=== PATIENT | female | born 1955 | race Caucasian/White ===

== ENCOUNTER 2023-07-03 14:44 | Observation (INO) | payer MEDICARE, MEDICAID, SELFPAY ==
[2023-07-03] VITALS (57 sets, daily range): BP systolic 89–205; BP diastolic 61–105; PULSE 88–140; RESP 16–34; TEMP 36.4–36.7; O2SAT 93–99; BMI 20.7; BMI 21.9
--- NOTE | 2023-07-03 14:47 | ECG_ITS ---
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
--- NOTE | 2023-07-03 14:47 | XR_ITS ---
The [address] [address] Patient Name: CHEYENNE YEN MRN: [id number] date: 1955 Sex: F Assigned Patient Location: ER Current Patient Location: ED.MAIN Accession/Order Number: [id number] Exam Date: 07/03/2023 15:18 Report Date: 07/03/2023 15:36 At the request of: SALEEM PEDRO Procedure: XR chest 1V EXAM: XR chest 1V HISTORY: sob COMPARISON: 07/03/2023 TECHNIQUE: Portable FINDINGS: LUNGS: Mild right basilar infiltrate. The left lung is clear VASCULATURE: No increased pulmonary vasculature. PLEURA: No pneumothorax, effusion, or pleural thickening. CARDIAC: No cardiomegaly or cardiac silhouette abnormality. MEDIASTINUM: No visible mass or adenopathy. BONES: No fracture or visible bone lesion. OTHER: Negative. XR/XR chest 1V IMPRESSION: Right basilar infiltrate Electronically authenticated by: JESUS CAGE Date: 07/03/2023 15:36
--- NOTE | 2023-07-03 15:14 | US_ITS ---
[address] [address] Patient Name: CHEYENNE YEN MRN: [id number] date: 1955 Sex: F Assigned Patient Location: ED.MAIN Current Patient Location: ER Accession/Order Number: [id number] Exam Date: 07/03/2023 15:30 Report Date: 07/03/2023 17:05 At the request of: SALEEM PEDRO Procedure: US abdominal aortic aneurysm EXAM: US abdominal aortic aneurysm HISTORY: epigastric fullness and tachycardia and dizziness COMPARISON: None. TECHNIQUE: Abdominal ultrasound is performed. Multiple grayscale and color Doppler images are submitted for review. FINDINGS: This is a difficult examination due to poor visualization of the aorta and iliac arteries due to obstruction by bowel gas. The abdominal aorta as well as the bilateral iliac arteries demonstrate severe atherosclerotic plaque. The proximal, mid and distal dominant aorta measure 2 x 1.9 cm, 1.8 x 1.8 cm and 1.6 x 1.7 cm in AP and transverse diameter, respectively. The right and left iliac arteries measure 1 x 1 cm and 0.9 x 1.1 cm in AP and transverse diameter, respectively. Doppler measurements were performed with velocities included in technologist report. US/US abdominal aortic aneurysm IMPRESSION: No evidence for abdominal aortic or iliac arterial aneurysm. Severe atherosclerotic calcification is seen. Electronically authenticated by: RODOLFO KEMP Date: 07/03/2023 17:05
--- NOTE | 2023-07-03 15:14 | PC.NURSE ---
pt states 30 mins ago was pushing a large heavy package into house and had an onset of SOB and dizziness. Pt does have h/o COPD.
[2023-07-03 15:19] LABS: Basophils Absolute Auto 0.1 10^3/uL (0.0-0.1); Basophils Percent Auto 0.7 % (0.2-2.0); Eosinophils Absolute Auto 0.4 10^3/uL (0.0-0.7); Eosinophils Percent Auto 3.4 % (0.9-7.0); Hematocrit 43.4 % (36.0-48.0); Hemoglobin 13.9 g/dL (12.0-16.0); Immature Granulocytes Abs Auto 0.04 10^3/uL (0.00-0.03); Immature Granulocytes Pct Auto 0.4 % (0.0-0.5); Lymphocytes Absolute Auto 2.7 10^3/uL (1.2-3.8); Lymphocytes Percent Auto 26.1 % (20.5-60.0); Mean Corpuscular Hemoglobin 30.2 pg (26.7-34.0); Mean Corpuscular Volume 94.3 fL (81.0-99.0); Mean Platelet Volume 10.9 fL (9.5-13.5); Neutrophils Absolute Auto 6.2 10^3/uL (1.4-6.5); Neutrophils Percent Auto 59.4 % (43.0-75.0); Platelet Count 301 10^3/uL (150-450); Red Cell Distribution Width 12.5 % (11.0-15.0); White Blood Count 10.4 10^3/uL (4.0-11.0)
[2023-07-03 15:32] LABS: Prothrombin Time 9.8 sec (9.0-11.6)
[2023-07-03] MEDS: 0.9 % SODIUM CHLORIDE 1,000 ML 1000 ML IV (15:32)
[2023-07-03 15:36] LABS: Alanine Aminotransferase 21 U/L (14-59); Albumin Globulin Ratio 0.9; Albumin Level 3.6 g/dL (3.4-5.0); Alkaline Phosphatase 60 U/L (46-116); Anion Gap 13.7; Aspartate Amino Transferase 14 U/L (15-37); BUN Creatinine Ratio 20.7; Bilirubin Total 0.2 mg/dL (0.2-1.0); Calcium 9.5 mg/dL (8.5-10.1); Carbon Dioxide 26.9 mmol/L (21.0-32.0); Chloride 101 mmol/L (98-107); Estimated GFR (African America >60 (>=60); Estimated GFR (Non-African Ame >60 (>=60); Globulin 4.2 g/dL; Glucose 113 mg/dL (74-106); Potassium 3.6 mmol/L (3.5-5.1); Sodium 138 mmol/L (136-145); Total Protein 7.8 g/dL (6.4-8.2)
[2023-07-03 15:39] LABS: Magnesium 1.7 mg/dL (1.8-2.4); Troponin I High Sensitivity 6.9 pg/mL (4.0-51.3)
[2023-07-03 15:40] LABS: INR <0.93
--- NOTE | 2023-07-03 15:45 | ED.SOB1 ---
HPI - SOB/Dyspnea General Chief Complaint: Shortness of Breath/Dyspnea Stated Complaint: SHORTNESS OF BREATH/ DIZZINESS Time Seen by Provider: 07/03/23 14:47 Source: patient Mode of arrival: Wheelchair Limitations: no limitations History of Present Illness HPI Narrative: Patient have history of COPD as well as hypertension and history of coronary artery disease s/p 2 stent presenting to the ER after she was pushing some heavy objects and all of a sudden she felt some fullness and pressure in her epigastric area with shortness of breath as well as dizziness The patient is complaining of shortness of breath no chest pain no nausea no vomiting no other complaints she mentioned that she was feeling okay during the day she never had any complain more than his baseline COPD No fever no chills and right now the patient's complaint is of dizziness in addition to the fullness in the epigastric area Related Data Allergies Allergy/AdvReac Type Severity Reaction Status Date / Time ciprofloxacin [From Cipro] Allergy Verified 07/03/23 14:51 Review of Systems ROS Status of ROS 10 or more systems reviewed and unremarkable except as noted in history and below PFSH PFS Social History Smoking status: Former smoker Exam Narrative Exam Narrative: Nurses notes and vital signs reviewed and patient is not hypoxic. General: Well-appearing and in no apparent distress. Skin: Warm, dry, no pallor noted. No rash. Head: Normocephalic, atraumatic. Neck: Supple, non-tender. Eye: Pupils are equal, round and EOMI. No scleral icterus. Ears, Nose, Mouth, and Throat: TM are clear, no nasal mucosal hypertrophy. Oral mucosa is moist, no posterior oropharynx erythema, uvula is mid-line Cardiovascular: Regular Rate and Rhythm without murmur, gallop or rub. Respiratory: No accessory muscle use or respiratory distress. Lungs are clear to auscultation, no wheezing, rales or rhonchi Chest Wall: no tenderness Back: No midline thoracic or lumbar vertebral tenderness. No CVA tenderness Musculoskeletal: normal ROM, no calf or popliteal tenderness, no lower extremity edema/swelling GI: Abdomen is soft, non-distended. Normal bowel sounds. No masses appreciated. No tenderness to palpation. No rebound, guarding, or rigidity noted. Neurological: A&O x4. No cranial nerve dysfunction observed. No truncal ataxia. Moves all extremities. Sensation intact. Psychiatric: Cooperative and interactive. Normal mood and affect. Constitutional Vital Signs, click to edit/add: Last Vital Signs Temp 97.6 F 07/03/23 14:47 Pulse 93 H 07/03/23 16:30 Resp 21 07/03/23 16:30 BP 162/78 H 07/03/23 16:40 Pulse Ox 99 07/03/23 16:30 O2 Del Method Room Air 07/03/23 14:47 Course Vital Signs Vital signs: Vital Signs Temperature 97.6 F 07/03/23 14:47 Pulse Rate 140 H 07/03/23 14:47 Respiratory Rate 20 07/03/23 14:47 Blood Pressure 166/94 H 07/03/23 14:47 Pulse Oximetry 96 07/03/23 14:47 Oxygen Delivery Method Room Air 07/03/23 14:47 Temperature 97.6 F 07/03/23 14:47 Pulse Rate 93 H 07/03/23 16:30 Respiratory Rate 21 07/03/23 16:30 Blood Pressure 162/78 H 07/03/23 16:40 Pulse Oximetry 99 07/03/23 16:30 Oxygen Delivery Method Room Air 07/03/23 14:47 MDM - SOB/Dyspnea MDM Narrative Medical decision making narrative: The patient EKG upon presentation showing sinus tachycardia with a heart rate of 123 there was some T wave inversion in the lead aVL but this was also noted in her previous EKGs With the patient atypical presentation a concern for aneurysm or dissection was initiated and the patient was supposed to go for CAT scan angio of the abdomen and chest but initially she refused although I offered her some sedation The patient then had an ultrasound of the abdomen that showed severe atherosclerotic disease is the patient continues to be tachycardic and her blood pressure noted to be elevated and she was provided with a hydralazine after which the blood pressure was 170 systolic still and she also was provided with labetalol 1 dose The patient agreed to have the CAT scan after I explained to her the importance of having 1 to make sure that we do a diagnostic study The patient troponin result increased from 6-12 which is a significant increase but still not positive I spoke with the technical staff assistant on-call Dr. Phillips and right now the plan if CAT scan is positive the patient and will be transferred to be treated but if it is negative the patient can be admitted to our facility to trend the troponin and monitor pt care was trasnferred to Dr Barry awaiting the result of the CT angio chest and abd Lab Data Labs: Lab Results 07/03/23 07/03/23 Range/Units 15:00 17:30 WBC 10.4 (4.0-11.0) 10^3/uL RBC 4.60 (4.20-5.40) 10^6/uL Hgb 13.9 (12.0-16.0) g/dL Hct 43.4 (36.0-48.0) % MCV 94.3 (81.0-99.0) fL MCH 30.2 (26.7-34.0) pg MCHC 32.0 (29.9-35.2) g/dL RDW 12.5 (11.0-15.0) % Plt Count 301 (150-450) 10^3/uL MPV 10.9 (9.5-13.5) fL Neut % (Auto) 59.4 (43.0-75.0) % Lymph % (Auto) 26.1 (20.5-60.0) % [place] % (Auto) 10.0 (1.7-12.0) % Eos % (Auto) 3.4 (0.9-7.0) % Baso % (Auto) 0.7 (0.2-2.0) % Neut # (Auto) 6.2 (1.4-6.5) 10^3/uL Lymph # (Auto) 2.7 (1.2-3.8) 10^3/uL [place] # (Auto) 1.0 H (0.3-0.8) 10^3/uL Eos # (Auto) 0.4 (0.0-0.7) 10^3/uL Baso # (Auto) 0.1 (0.0-0.1) 10^3/uL Abs Immat Gran (auto) 0.04 H (0.00-0.03) 10^3/uL Imm/Tot Granulo (auto) 0.4 (0.0-0.5) % PT 9.8 (9.0-11.6) sec INR <0.93 Sodium 138 (136-145) mmol/L Potassium 3.6 (3.5-5.1) mmol/L Chloride 101 (98-107) mmol/L Carbon Dioxide 26.9 (21.0-32.0) mmol/L Anion Gap 13.7 BUN 17.0 (7.0-18.0) mg/dL Creatinine 0.82 (0.55-1.02) mg/dL Est GFR ( Amer) >60 (>=60) Est GFR (Non-Af Amer) >60 (>=60) BUN/Creatinine Ratio 20.7 Glucose 113 H (74-106) mg/dL Lactate 2.2 H* 1.7 (0.4-2.0) mmol/L Calcium 9.5 (8.5-10.1) mg/dL Magnesium 1.7 L (1.8-2.4) mg/dL Total Bilirubin 0.2 (0.2-1.0) mg/dL AST 14 L (15-37) U/L ALT 21 (14-59) U/L Alkaline Phosphatase 60 (46-116) U/L Troponin I High Sens 6.9 13.8 (4.0-51.3) pg/mL NT-Pro-B Natriuret Pep 34.0 (<=900.0) pg/mL Total Protein 7.8 (6.4-8.2) g/dL Albumin 3.6 (3.4-5.0) g/dL Globulin 4.2 g/dL Albumin/Globulin Ratio 0.9 Discharge Plan Discharge Patient Disposition: Still a Patient
[2023-07-03 15:48] LABS: Lactate/Lactic Acid 2.2 mmol/L (0.4-2.0)
[2023-07-03] MEDS: HYDRALAZINE HCL 20 MG/ML VIAL 10 MG IVP (17:29)
[2023-07-03] MEDS: LORAZEPAM 1 MG TABLET PO (17:45)
[2023-07-03 17:57] LABS: Troponin I High Sensitivity 13.8 pg/mL (4.0-51.3)
[2023-07-03 17:58] LABS: Lactate/Lactic Acid 1.7 mmol/L (0.4-2.0)
--- NOTE | 2023-07-03 18:33 | CT_ITS ---
The [address] [address] Patient Name: CHEYENNE YEN MRN: [id number] date: 1955 Sex: F Assigned Patient Location: ER Current Patient Location: ED.MAIN Accession/Order Number: [id number] Exam Date: 07/03/2023 18:13 Report Date: 07/03/2023 19:49 At the request of: SALEEM PEDRO Procedure: CT angio abdomen pelvis EXAM: CT angio chest, CT angio abdomen pelvis HISTORY: epigastric fullness and sob COMPARISON: CT angiogram chest dated 11/10/2021. TECHNIQUE: Following rapid IV contrast administration, multiple axial images of the chest, abdomen and pelvis were obtained. Coronal and sagittal reformatted sequences are submitted for review. FINDINGS: VASCULAR STRUCTURES: The thoracic aorta demonstrates normal course, caliber and contrast enhancement. There is no evidence for thoracic aortic aneurysm or dissection. Atherosclerotic calcification of the abdominal aorta is seen. There is no evidence for abdominal aortic aneurysm or dissection. Normal contrast enhancement and caliber of the abdominal aorta and bilateral iliac arteries is seen. The celiac artery, as well as the superior and inferior mesenteric arteries appear patent with normal caliber and contrast enhancement. Mild atherosclerotic calcification is seen at the origin of the bilateral single renal arteries, without significant stenosis. CHEST: The heart size is normal. There is no evidence for pericardial effusion. Normal contrast opacification of the pulmonary arteries is seen without evidence for abrupt cut off or significant filling defect to suggest CT evidence for pulmonary embolism. There is no evidence for pleural effusion or pneumothorax. Mild centrilobular emphysema is seen. Stable appearing 2 mm nonspecific noncalcified nodule is seen in the right upper lobe. Small area of irregular parenchymal densities is seen in the superior segment of the left lower lobe, which may represent mild focal scarring, which appear stable since prior examination. Stable appearing reticulonodular densities are seen in the subpleural right lung base. However, there is interval development of small airspace changes in the bilateral lung bases, which may represent atelectasis versus small infiltrate. No significant enlarged hilar, mediastinal or axillary adenopathy seen. The visualized chest wall appears unremarkable. ABDOMEN/PELVIS: Patient is post cholecystectomy. Surgical clips are seen in the gallbladder fossa. The liver, spleen, pancreas and bilateral adrenal glands appear unremarkable. Bilateral kidneys demonstrate normal size, morphology and contrast enhancement. There is no evidence for hydronephrosis bilaterally. The urinary bladder appears unremarkable. A 7 cm round cystic structure is seen in the posterior pelvis. Right ovarian cystic structure/right ovarian etiology is considered. This finding can be better evaluated with pelvic ultrasound or pelvic MRI. Nonobstructive bowel pattern is seen. The appendix is not identified. No abnormal pericecal inflammatory changes are seen. Featureless appearance of the descending, sigmoid and ascending colon is seen, which may represent acute versus chronic inflammatory colitis. No significant free fluid or abnormal fluid collection is seen in the abdomen and pelvis. The abdominal wall and visualized soft tissues appear unremarkable. No acute or destructive osseous lesion is seen. CT/CT angio abdomen pelvis IMPRESSION: Atherosclerotic vascular calcification is seen without evidence for aneurysmal dilatation or dissection. Featureless appearance of the descending, sigmoid and ascending colon is seen, which may represent acute versus chronic inflammatory colitis. A 7 cm round cystic structure is seen in the posterior pelvis. Right ovarian cystic structure/right ovarian etiology is considered. This finding can be better evaluated with pelvic ultrasound or pelvic MRI. No CT evidence for pulmonary embolism. Mild centrilobular emphysema is seen. Stable appearing 2 mm nonspecific noncalcified nodule is seen in the right upper lobe. Small area of irregular parenchymal densities is seen in the superior segment of the left lower lobe, which may represent mild focal scarring, which appear stable since prior examination. Stable appearing reticulonodular densities are seen in the subpleural right lung base. However, there is interval development of small airspace changes in the bilateral lung bases, which may represent atelectasis versus small infiltrate. Electronically authenticated by: RODOLFO KEMP Date: 07/03/2023 19:49
--- NOTE | 2023-07-03 18:33 | CT_ITS ---
The [address] [address] Patient Name: CHEYENNE YEN MRN: [id number] date: 1955 Sex: F Assigned Patient Location: ED.MAIN Current Patient Location: ED.MAIN Accession/Order Number: [id number] Exam Date: 07/03/2023 18:13 Report Date: 07/03/2023 19:49 At the request of: SALEEM PEDRO Procedure: CT angio chest EXAM: CT angio chest, CT angio abdomen pelvis HISTORY: epigastric fullness and sob COMPARISON: CT angiogram chest dated 11/10/2021. TECHNIQUE: Following rapid IV contrast administration, multiple axial images of the chest, abdomen and pelvis were obtained. Coronal and sagittal reformatted sequences are submitted for review. FINDINGS: VASCULAR STRUCTURES: The thoracic aorta demonstrates normal course, caliber and contrast enhancement. There is no evidence for thoracic aortic aneurysm or dissection. Atherosclerotic calcification of the abdominal aorta is seen. There is no evidence for abdominal aortic aneurysm or dissection. Normal contrast enhancement and caliber of the abdominal aorta and bilateral iliac arteries is seen. The celiac artery, as well as the superior and inferior mesenteric arteries appear patent with normal caliber and contrast enhancement. Mild atherosclerotic calcification is seen at the origin of the bilateral single renal arteries, without significant stenosis. CHEST: The heart size is normal. There is no evidence for pericardial effusion. Normal contrast opacification of the pulmonary arteries is seen without evidence for abrupt cut off or significant filling defect to suggest CT evidence for pulmonary embolism. There is no evidence for pleural effusion or pneumothorax. Mild centrilobular emphysema is seen. Stable appearing 2 mm nonspecific noncalcified nodule is seen in the right upper lobe. Small area of irregular parenchymal densities is seen in the superior segment of the left lower lobe, which may represent mild focal scarring, which appear stable since prior examination. Stable appearing reticulonodular densities are seen in the subpleural right lung base. However, there is interval development of small airspace changes in the bilateral lung bases, which may represent atelectasis versus small infiltrate. No significant enlarged hilar, mediastinal or axillary adenopathy seen. The visualized chest wall appears unremarkable. ABDOMEN/PELVIS: Patient is post cholecystectomy. Surgical clips are seen in the gallbladder fossa. The liver, spleen, pancreas and bilateral adrenal glands appear unremarkable. Bilateral kidneys demonstrate normal size, morphology and contrast enhancement. There is no evidence for hydronephrosis bilaterally. The urinary bladder appears unremarkable. A 7 cm round cystic structure is seen in the posterior pelvis. Right ovarian cystic structure/right ovarian etiology is considered. This finding can be better evaluated with pelvic ultrasound or pelvic MRI. Nonobstructive bowel pattern is seen. The appendix is not identified. No abnormal pericecal inflammatory changes are seen. Featureless appearance of the descending, sigmoid and ascending colon is seen, which may represent acute versus chronic inflammatory colitis. No significant free fluid or abnormal fluid collection is seen in the abdomen and pelvis. The abdominal wall and visualized soft tissues appear unremarkable. No acute or destructive osseous lesion is seen. CT/CT angio chest IMPRESSION: Atherosclerotic vascular calcification is seen without evidence for aneurysmal dilatation or dissection. Featureless appearance of the descending, sigmoid and ascending colon is seen, which may represent acute versus chronic inflammatory colitis. A 7 cm round cystic structure is seen in the posterior pelvis. Right ovarian cystic structure/right ovarian etiology is considered. This finding can be better evaluated with pelvic ultrasound or pelvic MRI. No CT evidence for pulmonary embolism. Mild centrilobular emphysema is seen. Stable appearing 2 mm nonspecific noncalcified nodule is seen in the right upper lobe. Small area of irregular parenchymal densities is seen in the superior segment of the left lower lobe, which may represent mild focal scarring, which appear stable since prior examination. Stable appearing reticulonodular densities are seen in the subpleural right lung base. However, there is interval development of small airspace changes in the bilateral lung bases, which may represent atelectasis versus small infiltrate. Electronically authenticated by: RODOLFO KEMP Date: 07/03/2023 19:49
[2023-07-03] MEDS: LABETALOL HCL 20 MG/4 ML SYRINGE 10 MG IVP (18:42)
[2023-07-03] MEDS: MAGNESIUM SULFATE IN WATER 2 GM/50 ML PREMIX IV (18:42)
--- NOTE | 2023-07-03 23:14 | PC.NURSE ---
Patient notes that she lives in a [place] Apart[facility] Complex. States she walks around her apartment without any assistive devices. Notes that she has an electric wheelchair that she uses to leave her apartment. Notes she lives on the 2nd floor and to get from her apartment to the elevator and to the main door downstairs or to her mailbox, she becomes very SOB and now has the electric wheelchair to help her with this activity. No home oxygen required at this time.
--- NOTE | 2023-07-03 23:44 | W.PM.TELEPN ---
Progress Note: Subjective Subjective Interval history: CC: PIERSON HPI: This is 68 years old female with past medical history significant for coronary artery disease, status post PCI and stents, COPD, hypertension, diabetes, hypothyroidism, dyslipidemia. Patient developed chest discomfort and dyspnea on exertion after pushing heavy object through the door today. Her primary care physician and then aed trainer been concerned enough to send her to the hospital for evaluation. CT angiogram of the chest/abdomen/pelvis did not reveal any acute pathology. Cardiac enzymes remain flat. Admitted for further evaluation. Exam Narrative Exam Narrative: ROS: 1.General: no fever, chills, not in distress 2.HEENT: no SANTOYO, no blurry vision, no swallow problems, no nasal congestion, no sore throat 3.Pulmonary: no cough, SOB, wheezes 4.CVS: See above 5.GI: no nausea, vomiting or diarrhea, no abdominal pain, no constipation, no hematemesis or hematochezia 6.: no renal colic, no hematuria, urinary frequency or urgency 7.Extremities: no edema 8.Neurological: no dizziness, vertigo, double or blurry vision, no no focal weakness, no paresthesia, no swallow or speech problems 9.Musculosceletal: no joint pains, no joint swelling, no back pain 10.Dermatological: no skin rashes, no lesions, no pruritus 11.Hematological: no bleeding, no hx/o clots 12.Endocrinological: no heat/cold intolerance, no hx/o diabetes 13.Psychiatric: no suicidal or homicidal thoughts Physical Exam: Not in distress, pleasant, lucid, cooperative, Head - atraumatic, eyes - pupils equal, round, reactive to light, extra ocular movement intact, MMM Neck - supple, thyroid not enlarged, LN not palpated Lungs - clear to auscultation, no dullness on percussion CVS - heart sounds S1, S2, no additional murmurs gallop, regular rate and rhythm Gastrointestinal?abdomen is soft, non-tender, non-distended, no organomegaly, positive bowel sounds Extremities no clubbing, cyanosis or edema Neurological?cranial nerve II?XII grossly intact, no meningeal signs, no cerebellar signs, no sensory deficit Musculoskeletal - joints, no effusions, ROM preserved Dermatological - the skin dry, warm, no rashes Psychiatric?patient is AAO X3, patient has normal affect Constitutional Vital Signs, click to edit/add: Last Vital Signs Temp 98.0 F 07/03/23 21:44 Pulse 103 H 07/03/23 23:00 Resp 16 07/03/23 23:00 BP 147/62 H 07/03/23 21:44 Pulse Ox 97 07/03/23 21:44 O2 Del Method Room Air 07/03/23 21:44 Progress Note: Objective Labs Labs: Short CBC 07/03/23 Range/Units 15:00 WBC 10.4 (4.0-11.0) 10^3/uL Hgb 13.9 (12.0-16.0) g/dL Hct 43.4 (36.0-48.0) % Plt Count 301 (150-450) 10^3/uL BMP 07/03/23 15:00 Sodium 138 Potassium 3.6 Chloride 101 Carbon Dioxide 26.9 BUN 17.0 Creatinine 0.82 Glucose 113 H Calcium 9.5 Liver Function 07/03/23 Range/Units 15:00 Total Bilirubin 0.2 (0.2-1.0) mg/dL AST 14 L (15-37) U/L ALT 21 (14-59) U/L Alkaline Phosphatase 60 (46-116) U/L Albumin 3.6 (3.4-5.0) g/dL Progress Note: A&P Assessment and Plan (1) Chest pain: Assessment and Plan: - patient's condition is guarded and requires admission to telemetry floor for close monitoring and medical management - continue to trend Valeriano to r/u possibility of acute coronary event - will make sure that patient is on at least moderate potency dose of Atorvastatin, full dose of EC ASA (for now), BBs and ACEI if not contraindicated - will order an ECHO to look for wall motion abnormalities and evaluate valvular structures - Follow-up with Dr. Phillips in the morning (2) Diabetes: Assessment and Plan: DM- continue with ADA diet - hold off oral hypoglycemic agents while in the hospital to avoid hypoglycemic episodes - frequent accuchecks (TID AC + HS) - will provide coverage with long acting insulin as well as short acting insulin with meals - adjust as needed - hypoglycemia protocol in place (3) Hypothyroidism: Assessment and Plan: Continue with home dose of supplemental levothyroxine (4) Coronary artery disease: Assessment and Plan: As above. Currently chest pain-free Plan As the provider for the telehealth service, I attest that I introduced myself to the patient, provided my credentials, disclosed by location and determined that based on a review of the patient's chart and discussion with members of the patient's treatment team, telemedicine via real-time, 2 way, and interactive audio and video platform is an appropriate and effective means of providing the service. ?The patient and I mutually agree this visit is appropriate for telemedicine. ?The virtual encounter was taken place from? [place], [place]. ?The encounter took approximately 35 minutes. ?The nurse was present during the entire time and I was able to move the stethoscope in appropriate directions. ?The patient was evaluated at the Hospital ? Portions of this note may be dictated using [employer] voice recognition software. Variances in spelling and vocabulary are possible and unintentional. Not all errors may be caught and/or corrected. Please notify the author if any discrepancies are noted and/or if the meaning of any statement is unclear.? ? Patient verbally consented for treatment via video visit with patient currently located at the [facility] and provider located in [place]. Telemedicine Attestation Telemedicine Attestation I conducted this encounter from [[place]] via secure live, [id number] video conference with the patient, located at [facility] with [dyspnea on exertion]. Prior to the interview, the risks and benefits of telemedicine were discussed with the patient and verbal consent was obtained.
[2023-07-03 23:54] LABS: Glucometer 149 mg/dL (74-106)
[2023-07-04] VITALS (83 sets, daily range): BP systolic 123–152; BP diastolic 56–85; PULSE 73–140; RESP 11–144; TEMP 36.1–36.7; O2SAT 93–100
[2023-07-04] MEDS: INSULIN ASPART 300 UNIT/3 ML PEN SUBQ (00:18)
[2023-07-04] MEDS: ASPIRIN 81 MG TAB.CHEW PO ×2 (00:20→08:40)
[2023-07-04 00:23] LABS: Troponin I High Sensitivity 16.4 pg/mL (4.0-51.3)
[2023-07-04 03:20] LABS: Troponin I High Sensitivity 13.3 pg/mL (4.0-51.3)
[2023-07-04] MEDS: ALBUTEROL SULFATE 2.5 MG/3 ML VIAL NEB IH ×2 (04:35→10:54)
[2023-07-04 06:11] LABS: Troponin I High Sensitivity 11.4 pg/mL (4.0-51.3)
[2023-07-04 06:20] LABS: Cholesterol 180 mg/dL (<=200); Triglycerides 147 mg/dL (<=150); VLDL CHOLESTEROL 29.4 mg/dL
[2023-07-04 06:21] LABS: Anion Gap 10.5; BUN Creatinine Ratio 19.7; Calcium 9.4 mg/dL (8.5-10.1); Carbon Dioxide 29.2 mmol/L (21.0-32.0); Chloride 105 mmol/L (98-107); Estimated GFR (African America >60 (>=60); Estimated GFR (Non-African Ame >60 (>=60); Glucose 122 mg/dL (74-106); HDL Cholesterol 88 mg/dL (40-60); Potassium 3.7 mmol/L (3.5-5.1); Sodium 141 mmol/L (136-145)
[2023-07-04] MEDS: LEVOTHYROXINE SODIUM 25 MCG TABLET 75 MCG PO (06:23)
--- NOTE | 2023-07-04 07:09 | CA_ITS ---
Patient Name: CHEYENNE YEN MR#: [id number] : 1955 Exam Date: 07/04/2023 Ordering Doctor: SHAIKH Kulwinder COOK . ECHOCARDIOGRAM REPORT PROCEDURE: CA ECHO DOPPLER COMPLETE INDICATIONS: chest pain COMPARISON: None. DESCRIPTION: COMPLETE ECHOCARDIOGRAM Real-time transthoracic echocardiography with 2D, M-mode, spectral and color flow Doppler performed. QUALITY: Technical quality was adequate. LEFT VENTRICLE: Normal chamber size. Mild concentric left ventricular hypertrophy. Global left ventricular systolic function is normal. LV EF: Estimated left ventricular ejection fraction is 65-70% DIASTOLIC: Normal diastolic function. ATRIAL SEPTUM: LEFT ATRIUM: Normal chamber size. RIGHT ATRIUM: Normal chamber size. RIGHT VENTRICLE: Normal chamber size. Normal right ventricular systolic function. TRICUSPID VALVE: Normal mobility and thickness. No stenosis with trivial regurgitation. No evidence of pulmonary hypertension. RVSP 23 mmHg MITRAL VALVE: Normal mobility and thickness. No evidence of mitral valve stenosis. There is no mitral annular calcification. Trivial mitral regurgitation. AORTIC VALVE: Grossly normal. No evidence of aortic valve stenosis. No aortic regurgitation. AORTIC ROOT: Normal diameter and appearance. PULMONIC VALVE: Grossly normal. PERICARDIUM: No evidence of pericardial effusion. IVC: Collapses with inspirations. Normal size PLEURA: CONCLUSION: 1. Mild concentric left ventricular hypertrophy with normal systolic function. LVEF is 65 to 70%. 2. Normal diastolic function. 3. Normal right ventricular size and systolic function. 4. No significant valvular dysfunction. Adult Echocardiography Procedure Report Left Ventricle LVEDD (3.7 - 5.6 cm): 3.96 cm LVESD (2.2 - 4.0 cm): 2.70 cm LVIVS thickness (0.6 - 1.2 cm): 1.03 cm LVPW thickness (0.5 - 1.0 cm): 1.14 cm e': 0.09 m/s E - e': 7.97 LVOT Max Gradient: 6.74 mm[Hg], 6.04 mm[Hg] LVOT Area (cm2): 1.26 m/s Peak Velocity (LVOT): 1.30 m/s, 1.23 m/s Mean Velocity (LVOT): 0.73 m/s LVOT Diameter 1.89 cm Left Ventricular Ejection Fraction: 65-70 % Left Atrium LA Volume Index (2D A2C): 20.54 ml/m2 Left Atrium Systolic Dimension: 3.30 cm Mitral Valve MV E to A Ratio: 0.77 Mitral Valve A-Wave Peak Velocity: 0.93 m/s Mitral Valve E-Wave Peak Velocity: 0.72 m/s Right Ventricle RV Internal Diastolic Dimension: 2.91 cm Aorta AO Root Diam: 2.80 cm Aortic Valve AoV Area (Peak Pancho): 2.56 cm2, 2.53 cm2, 2.59 cm2 AoV Area (VTI): 2.25 cm2, 2.36 cm2, 2.14 cm2 Peak Velocity(Antegrade Flow): 1.44 m/s, 1.34 m/s Peak Gradient(Antegrade Flow): 8.30 mm[Hg], 7.13 mm[Hg] Mean Velocity(Antegrade Flow): 0.96 m/s, 0.91 m/s Mean Gradient(Antegrade Flow): 4.26 mm[Hg], 3.78 mm[Hg] Velocity Time Integral: 28.68 cm, 28.21 cm Tricuspid Valve Peak Velocity (Regurgitant Flow): 1.39 m/s, 2.28 m/s Pulmonic Valve Peak Velocity: 1.50 m/s Peak Gradient: 9.04 mm[Hg] Right Atrium Right Atrium Systolic Pressure: 43.06 ml, 43.06 ml Dictated by: Chu Colby M.D. on 07/04/2023 at 17:37 Approved by: Chu Colby M.D. on 07/04/2023 at 17:40
[2023-07-04 07:25] LABS: Glucometer 107 mg/dL (74-106)
[2023-07-04 07:35] LABS: Estimated Average Glucose 128 mg/dL; Glycohemoglobin A1C 6.1 % (4.5-6.2)
[2023-07-04] MEDS: LISINOPRIL 10 MG TABLET PO (08:40)
[2023-07-04] MEDS: OMEPRAZOLE 40 MG CAPSULE.DR PO (08:40)
--- NOTE | 2023-07-04 09:43 | CM.NOTE ---
Rounding with Dr. Stallings. Pt. sitting up in chair at bedside. Discussed cardiac enzymes being negative and discussed testing being done as outpatient. Pt. discussed increased anxiety and Dr. Stallings recommended patient follow up on this with her primary care provider. Dr. Stallings also stated will do stress test in hospital tomorrow and will order something temporary for anxiety for the night.
--- NOTE | 2023-07-04 10:12 | CM.NOTE ---
Medicare Outpaitent Observation Notice discussed with pt, pt verbalizes understanding and signs paper. Original given to pt and copy placed on pt's chart.
--- NOTE | 2023-07-04 10:18 | NM_ITS ---
Patient Name: CHEYENNE YEN MR#: [id number] : 1955 Exam Date: 07/05/2023 Ordering Doctor: SHAIKH Kulwinder COOK . RADIOLOGY REPORT PROCEDURE: NM JUNIOR PERF SPECT REST STR COMPARISON: None. INDICATIONS: chest pain TECHNIQUE: Exam Description: Stress/Rest one day protocol gated SPECT Rest Imagin.8 mCi Tc-99m Cardiolite IV on 07/05/2023 Stress Imaging 32.1 mCi Tc-99m Cardiolite IV on 07/05/2023 Exercise Protocol: 0.4 mg Lexiscan given IV Heart Rate (bpm): Rest: 90 Max: 125 PMHR: 82 Blood Pressure: Rest: 98/52 Max: 120/58 Symptoms: Rest and peak stress ECG findings were normal and the exercise portion of the study was normal per attending physician Dr. Colby . For more details please see separate cardiac stress test report. FINDINGS: QUALITY OF STUDY: PERFUSION DEFECT: None. LOCATION: N/A SIZE: N/A. SEVERITY: N/A. TYPE: N/A. WALL MOTION: Normal. LV SIZE: Normal. 39 mL. TID / TCD: None; 0.7 LVEF: Normal. Calculated EF 84%. SUMMARY: Myocardial perfusion imaging study is NORMAL. CONCLUSION: 1. Normal myocardial profusion scan. No reversible ischemia 2. Normal exercise test Dictated by: Hong Noble MD on 07/05/2023 at 13:26 Approved by: Hong Noble MD on 07/05/2023 at 13:28
--- NOTE | 2023-07-04 10:27 | P.HP_ITS ---
H&P: HPI History of Present Illness Chief complaint: SHORTNESS OF BREATH/ DIZZINESS, Chest Pain Narrative: 68 y o female with prior hx of CAD s/p PCI about 25 years ago, was in usual state of health when she started to experience midsternal chest pain, associated with SOB, lightheadedness and was brought to ED by her friend. Her symptoms resolved about an hour or so and resolved by the time, she reached ED. She reports no recent cardiac testing for CAD and has been doing well in this regard. Currently asymptomatic and reports no active complaints. Review of Systems ROS Status of ROS 10 or more systems reviewed and unremark able except as noted in history and below PFSH [facility] Medical History (Updated 07/04/23 @ 10:44 by Shaikh Chandrakant MD) HLD (hyperlipidemia) ?E78.5 - Hyperlipidemia, unspecified (ICD-10) Coronary artery disease ?I25.10 - Atherosclerotic heart disease of [place] coronary artery without angina pectoris (ICD-10) Hypothyroidism ?E03.9 - Hypothyroidism, unspecified (ICD-10) Diabetes ?E11.9 - Type 2 diabetes mellitus without complications (ICD-10) Gallbladder calculus ?K80.20 - Calculus of gallbladder without cholecystitis without obstruction (ICD-10) History of heart attack ?I25.2 - Old myocardial infarction (ICD-10) Phlebitis ?I80.9 - Phlebitis and thrombophlebitis of unspecified site (ICD-10) COPD (chronic obstructive pulmonary disease) ?J44.9 - Chronic obstructive pulmonary disease, unspecified (ICD-10) Surgical History (Updated 07/03/23 @ 22:21 by Que Aaron) Previous section ?Z98.891 - History of uterine scar from previous surgery (ICD-10) History of tonsillectomy ?Z90.89 - Acquired absence of other organs (ICD-10) History of cholecystectomy ?Z90.49 - Acquired absence of other specified parts of digestive tract (ICD- 10) Family History (Updated 07/03/23 @ 22:23 by Que Aaron) Mother Family history of cancer Father Family history of COPD (chronic obstructive pulmonary disease) Social History (Updated 07/03/23 @ 22:27 by Que Aaron) Within the past year, how often did you have a drink containing alcohol: never Score interpretation: A score less than 3 is consistent with normal alcohol consumption. 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 Known occupational exposures/hazards: No Highest level of school completed/degree received: 9th grade Do you want help with school or training: No Are you now , , , , never or living with a partner: In a typical week, how many times do you talk on the telephone with family, friends, or neighbors: 3 or more times per week How often do you get together with friends or relatives: 3 or more times per week How often do you attend sabianism or sikh services: never Do you belong to any clubs or organizations such as sabianism groups unions, [employer] or athletic groups, or school groups: yes Total score: 2 Score interpretation: A score of greater than or equal to 2 indicates the lowest level of social isolation. Little interest or pleasure in doing things: not at all Feeling down, depressed, or hopeless: not at all Feel stressed/tense/nervous/anxious/difficulty sleeping: to some extent Life stressors: recent of family or friend Life stressor details: recent family deaths and dog 2 weeks ago Due to disability, difficulty making decisions: No Do you think of yourself as: straight/heterosexual Gender Identity: female Meds Home Medications and Allergies Home Medications Medication Instructions Recorded Confirmed Type albuterol sulfate 90 mcg/actuation 2 puff inhalation Q6H 07/03/23 07/03/23 History aerosol inhaler budesonide-formoterol HFA 160 2 puff inhalation Q12H 07/03/23 07/04/23 History mcg-4.5 mcg/actuation aerosol inhaler (Symbicort) levothyroxine 75 mcg tablet 75 mcg PO DAILY 07/03/23 07/03/23 History lisinopril 10 mg tablet 10 mg PO DAILY 07/03/23 07/03/23 History metformin 500 mg tablet 500 mg PO DAILY 07/03/23 07/03/23 History simvastatin 40 mg tablet 40 mg PO DAILY 07/04/23 07/04/23 History Allergies Allergy/AdvReac Type Severity Reaction Status Date / Time ciprofloxacin [From Cipro] Allergy Verified 07/03/23 14:51 Exam Constitutional Vital Signs, click to edit/add: Last Vital Signs Temp 98.0 F 07/04/23 07:33 Pulse 104 H 07/04/23 09:41 Resp 16 07/04/23 07:33 BP 132/74 07/04/23 08:40 Pulse Ox 98 07/04/23 07:33 O2 Del Method Room Air 07/04/23 07:33 Documenting provider has reviewed patient's vital signs: yes Common normals: no apparent distress and oriented x3 General appearance: cooperative HENMT Common normals: normocephalic and head/scalp atraumatic Head and scalp: normocephalic and atraumatic Respiratory Common normals: normal respiratory effort and clear to auscultation bilaterally Effort & inspection: able to speak in complete sentences Auscultation: clear to auscultation bilaterally Cardio Common normals: regular rate, S1 normal heart sound and S2 normal heart sound Rate: regular rate Heart sounds: S1 normal and S2 normal GI Common normals: Normal to inspection, nondistended, normoactive bowel sounds present, soft to palpation, non-tender and no hepatosplenomegaly Palpation: soft and no hepatosplenomegaly Extremity Common normals: no clubbing, cyanosis or edema Neuro Common normals: oriented x3, moves all extremities and no focal motor deficits Psych Common normals: mental status grossly normal, denies hallucinations, denies homicidal ideation and denies suicidal ideation Results Labs Labs: Short CBC 07/03/23 Range/Units 15:00 WBC 10.4 (4.0-11.0) 10^3/uL Hgb 13.9 (12.0-16.0) g/dL Hct 43.4 (36.0-48.0) % Plt Count 301 (150-450) 10^3/uL BMP 07/03/23 07/04/23 15:00 05:47 Sodium 138 141 Potassium 3.6 3.7 Chloride 101 105 Carbon Dioxide 26.9 29.2 BUN 17.0 14.0 Creatinine 0.82 0.71 Glucose 113 H 122 H Calcium 9.5 9.4 Liver Function 07/03/23 Range/Units 15:00 Total Bilirubin 0.2 (0.2-1.0) mg/dL AST 14 L (15-37) U/L ALT 21 (14-59) U/L Alkaline Phosphatase 60 (46-116) U/L Albumin 3.6 (3.4-5.0) g/dL Assessment and Plan Assessment and Plan (1) Chest pain: Assessment and Plan: EKG- non specific t wave changes. Resolved. Trop x 3 negative Awaiting 2D ECHO Will order nuclear stress test - heart score 6. Prior hx of CAD Monitor on tele CTA negative for PE Qualifiers: Chest pain type: unspecified Qualified Code(s): R07.9 - Chest pain, unspecified (2) Coronary artery disease: Assessment and Plan: s/p PCI over 25 years ago. Started on asa, was not using it C/w statin - lipid profile at goal Qualifiers: Coronary Disease-Associated Artery/Lesion type: [place] artery [place] vs. transplanted heart: [place] heart Associated angina: without angina Qualified Code(s): I25.10 - Atherosclerotic heart disease of [place] coronary artery without angina pectoris (3) COPD (chronic obstructive pulmonary disease): Assessment and Plan: no wheezing. Stable. C/w albuterol as needed Qualifiers: COPD type: unspecified COPD Qualified Code(s): J44.9 - Chronic obstructive pulmonary disease, unspecified (4) Diabetes: Assessment and Plan: SSI while inpatient. 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 Outpatient f/u
[2023-07-04 10:59] LABS: Glucometer 120 mg/dL (74-106)
[2023-07-04] MEDS: ATORVASTATIN CALCIUM 20 MG TABLET PO (11:02)
--- NOTE | 2023-07-04 12:17 | PM.CACN ---
History of Present Illness History of Present Illness Consult date: 07/04/23 Consult reason: chest pain Chief complaint: SHORTNESS OF BREATH/ DIZZINESS, Chest Pain Narrative: Per the H&P: This is 68 years old female with past medical history significant for coronary artery disease, status post PCI and stents, COPD, hypertension, diabetes, hypothyroidism, dyslipidemia. Patient developed chest discomfort and dyspnea on exertion after pushing heavy object through the door today. Her primary care physician and then vamp strap ironer been concerned enough to send her to the hospital for evaluation. CT angiogram of the chest/abdomen/pelvis did not reveal any acute pathology. Cardiac enzymes remain flat. Admitted for further evaluation. The patient relays a remote history of PCI/stent placement. She does not follow up with a vamp strap ironer and has not had testing for a number of years. She denies exertional chest pain. She states that when moving the parcel, she felt epigastric discomfort and worsened dyspnea. No recent orthopnea, no PND and no leg swelling. Review of Systems ROS Status of ROS 10 or more systems reviewed and unremarkable except as noted in history and below Respiratory Reports: shortness of breath PFSH PFSH Medical History (Updated 07/04/23 @ 10:44 by Shaikh Chandrakant MD) HLD (hyperlipidemia) ?E78.5 - Hyperlipidemia, unspecified (ICD-10) Coronary artery disease ?I25.10 - Atherosclerotic heart disease of [place] coronary artery without angina pectoris (ICD-10) Hypothyroidism ?E03.9 - Hypothyroidism, unspecified (ICD-10) Diabetes ?E11.9 - Type 2 diabetes mellitus without complications (ICD-10) Gallbladder calculus ?K80.20 - Calculus of gallbladder without cholecystitis without obstruction (ICD-10) History of heart attack ?I25.2 - Old myocardial infarction (ICD-10) Phlebitis ?I80.9 - Phlebitis and thrombophlebitis of unspecified site (ICD-10) COPD (chronic obstructive pulmonary disease) ?J44.9 - Chronic obstructive pulmonary disease, unspecified (ICD-10) Surgical History (Updated 07/03/23 @ 22:21 by Que Aaron) Previous section ?Z98.891 - History of uterine scar from previous surgery (ICD-10) History of tonsillectomy ?Z90.89 - Acquired absence of other organs (ICD-10) History of cholecystectomy ?Z90.49 - Acquired absence of other specified parts of digestive tract (ICD-10) Family History (Updated 07/03/23 @ 22:23 by Que Aaron) Mother Family history of cancer Father Family history of COPD (chronic obstructive pulmonary disease) Social History (Updated 07/03/23 @ 22:27 by Que Aaron) Within the past year, how often did you have a drink containing alcohol: never Score interpretation: A score less than 3 is consistent with normal alcohol consumption. 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 Known occupational exposures/hazards: No Highest level of school completed/degree received: 9th grade Do you want help with school or training: No Are you now , , , , never or living with a partner: In a typical week, how many times do you talk on the telephone with family, friends, or neighbors: 3 or more times per week How often do you get together with friends or relatives: 3 or more times per week How often do you attend temple or episcopalian services: never Do you belong to any clubs or organizations such as temple groups unions, [employer] or athletic groups, or school groups: yes Total score: 2 Score interpretation: A score of greater than or equal to 2 indicates the lowest level of social isolation. Little interest or pleasure in doing things: not at all Feeling down, depressed, or hopeless: not at all Feel stressed/tense/nervous/anxious/difficulty sleeping: to some extent Life stressors: recent of family or friend Life stressor details: recent family deaths and dog 2 weeks ago Due to disability, difficulty making decisions: No Do you think of yourself as: straight/heterosexual Gender Identity: female Meds Home Medications and Allergies Home Medications Medication Instructions Recorded Confirmed Type albuterol sulfate 90 mcg/actuation 2 puff inhalation Q6H 07/03/23 07/03/23 History aerosol inhaler budesonide-formoterol HFA 160 2 puff inhalation Q12H 07/03/23 07/04/23 History mcg-4.5 mcg/actuation aerosol inhaler (Symbicort) levothyroxine 75 mcg tablet 75 mcg PO DAILY 07/03/23 07/03/23 History lisinopril 10 mg tablet 10 mg PO DAILY 07/03/23 07/03/23 History metformin 500 mg tablet 500 mg PO DAILY 07/03/23 07/03/23 History simvastatin 40 mg tablet 40 mg PO DAILY 07/04/23 07/04/23 History Allergies Allergy/AdvReac Type Severity Reaction Status Date / Time ciprofloxacin [From Cipro] Allergy Verified 07/03/23 14:51 Exam Constitutional Vital Signs, click to edit/add: Last Vital Signs Temp 98.0 F 07/04/23 07:33 Pulse 97 H 07/04/23 11:10 Resp 27 H 07/04/23 11:10 BP 147/85 H 07/04/23 10:50 Pulse Ox 98 07/04/23 10:54 O2 Del Method Room Air 07/04/23 07:33 Common normals: no apparent distress General appearance: cooperative and comfortable Orientation/consciousness: Yes awake, Yes oriented to person, Yes oriented to place and Yes oriented to time HENMT Common normals: normocephalic and head/scalp atraumatic Head and scalp: normal to inspection and normocephalic Face and sinus: normal facial exam Eye Common normals: PERRL and EOMs intact bilaterally General eye: normal appearance of both eyes Visual acuity: acuity normal Neck & C-Spine Common normals: full ROM and no lymphadenopathy General: normal visual inspection Thyroid: thyroid normal Chest Common normals: inspection of chest normal Respiratory Common normals: normal respiratory effort Effort & inspection: able to speak in complete sentences Auscultation: clear to auscultation bilaterally and diminished lung sounds Cardio Common normals: no JVD, regular rate, regular rhythm, S1 normal heart sound, S2 normal heart sound, no gallops, no clicks, no murmurs, no rub and peripheral pulses 2+ throughout Extremity Common normals: normal to inspection Results Labs and Meds Lab results: Cardiac Enzymes 07/03/23 Range/Units 15:00 AST 14 L (15-37) U/L Coagulation 07/03/23 Range/Units 15:00 PT 9.8 (9.0-11.6) sec Lipids 07/04/23 Range/Units 05:47 Triglycerides 147 (<=150) mg/dL Cholesterol 180 (<=200) mg/dL HDL Cholesterol 88 H (40-60) mg/dL Cholesterol/HDL Ratio 2.0 CBC 07/03/23 Range/Units 15:00 WBC 10.4 (4.0-11.0) 10^3/uL RBC 4.60 (4.20-5.40) 10^6/uL Hgb 13.9 (12.0-16.0) g/dL Hct 43.4 (36.0-48.0) % Plt Count 301 (150-450) 10^3/uL Neut # (Auto) 6.2 (1.4-6.5) 10^3/uL Lymph # (Auto) 2.7 (1.2-3.8) 10^3/uL Wirt # (Auto) 1.0 H (0.3-0.8) 10^3/uL Eos # (Auto) 0.4 (0.0-0.7) 10^3/uL Baso # (Auto) 0.1 (0.0-0.1) 10^3/uL Comprehensive Metabolic Panel 07/03/23 07/04/23 Range/Units 15:00 05:47 Sodium 138 141 (136-145) mmol/L Potassium 3.6 3.7 (3.5-5.1) mmol/L Chloride 101 105 (98-107) mmol/L Carbon Dioxide 26.9 29.2 (21.0-32.0) mmol/L BUN 17.0 14.0 (7.0-18.0) mg/dL Creatinine 0.82 0.71 (0.55-1.02) mg/dL Glucose 113 H 122 H (74-106) mg/dL Calcium 9.5 9.4 (8.5-10.1) mg/dL AST 14 L (15-37) U/L ALT 21 (14-59) U/L Alkaline Phosphatase 60 (46-116) U/L Total Protein 7.8 (6.4-8.2) g/dL Albumin 3.6 (3.4-5.0) g/dL Intake and Output 07/03/23 07/04/23 07/04/23 23:59 07:59 15:59 Intake Total 1050 / 1290 240 / 1290 200 / 200 Balance 1050 / 1290 240 / 1290 200 / 200 Intake: Oral 240 / 240 200 / 200 IV 1050 / 1050 0.9 % Sodium Chloride 1,000 ml 1000 / 1000 @ 1000 mls/hr IV .Q1H ONE Rx#: [id number] Magnesium Sulfate in Water 2 gm 50 / 50 In 50 ml @ 50 mls/hr IV ONCE ONE Rx#:[id number] Other: # Voids 2 Weight 67.4 kg Imaging and Cardiology Echo: other (preliminary report nml EF%, no WMAs) EKG Interpretation EKG: not changed from: ([place] [address] Electrocardiograph Report Signed Patient: CHEYENNE YEN MR#: [id number] : 1955 Acct:[id number] Age/Sex: 68 / F ADM Date: 07/03/23 Loc: ICU 270-[address]: Shaikh Chandrakant Cruz Ordering Physician: Valentina Swann Date of ) Assessment and Plan Assessment and Plan (1) Chest pain: Qualifiers: Chest pain type: unspecified Qualified Code(s): R07.9 - Chest pain, unspecified (2) Coronary artery disease: Qualifiers: Coronary Disease-Associated Artery/Lesion type: [place] artery [place] vs. 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 Routine labs, serial enzymes normal thus far 2. Await formal echo report 3. Agree with stress test as in-patient 4. GDMT for h/o CAD should include ASA, moderate to high intensity statin (atorvastatin or rosuvastatin preferred), a BBlocker +/- an TYSHAWN-I/ARB 5. Given DM and vascular disease, an SGLT2 inhibitor is recommended; Jardiance or Farxiga or a GLP1 receptor agonist 6. Treat non cardiac comorbidities as appropriate If stress test is normal, it would be reasonable to discharge the patient home and have her follow up with her primary vamp strap ironer. if ischemic, decision regarding need and timing of cath can be discussed. Thank you for the consultation Jamie Rangel MD [facility]
[2023-07-04 15:44] LABS: Glucometer 135 mg/dL (74-106)
[2023-07-04 15:46] LABS: Glucometer 115 mg/dL (74-106)
[2023-07-04] MEDS: ALBUTEROL SULFATE 200 PUFF/6.7 GM INHALER IH ×2 (16:01→20:09)
[2023-07-04 21:51] LABS: Glucometer 110 mg/dL (74-106)
[2023-07-05] VITALS (29 sets, daily range): BP systolic 108–159; BP diastolic 64–72; PULSE 79–114; RESP 12–49; TEMP 36.6; O2SAT 92–96
--- NOTE | 2023-07-05 | PCN_ITS ---
CARDIAC STRESS TEST Requesting Physician: Procedure Date: 07/05/2023 This was a Lexiscan stress test with myocardial perfusion imaging performed at the [facility] on 07/05/2023. Informed consent was obtained and intravenous line was secured. The patient was attached to electrocardiographic monitoring. Lexiscan 0.4 mg were given intravenously, followed by administration of Cardiolite. The patient then went on to obtain myocardial perfusion imaging. Resting heart rate was 90 BPM and maximum heart rate was 125 BPM. Resting blood pressure was 98/52 and maximum blood pressure was 120/58. Resting ECG showed evidence of sinus rhythm with non-specific ST changes. There were no arrhythmias. Following infusion of Lexiscan, there was evidence of occasional PVCs. Sinus rhythm was maintained throughout the test. There was evidence of non-specific ST changes in inferior and lateral leads that did not reach criteria for ischemia. Final ECG was compatible to baseline. SUMMARY OF THE FINDINGS: 1. No evidence of ischemic ECG changes following infusion of Lexiscan. 2. Myocardial perfusion images will be reported separately. [facility]
[2023-07-05] MEDS: ALPRAZOLAM 0.5 MG TABLET PO (00:54)
[2023-07-05] MEDS: ALBUTEROL SULFATE 200 PUFF/6.7 GM INHALER IH ×2 (04:04→11:30)
[2023-07-05] MEDS: LEVOTHYROXINE SODIUM 25 MCG TABLET 75 MCG PO (05:35)
[2023-07-05 07:26] LABS: Glucometer 112 mg/dL (74-106)
[2023-07-05] MEDS: REGADENOSON 0.4 MG/5 ML SYRINGE IV (09:43)
--- NOTE | 2023-07-05 10:43 | CM.NOTE ---
Stress test today. Will determine discharge plan based on results. No anticipated discharge needs at home.
[2023-07-05] MEDS: OMEPRAZOLE 40 MG CAPSULE.DR PO (11:15)
[2023-07-05] MEDS: ATORVASTATIN CALCIUM 20 MG TABLET PO (11:15)
[2023-07-05] MEDS: LISINOPRIL 10 MG TABLET PO (11:15)
[2023-07-05] MEDS: ASPIRIN 81 MG TAB.CHEW PO (11:15)
--- NOTE | 2023-07-05 11:42 | PM.DS1 ---
DS: Providers Provider Date of admission: 07/03/23 21:36 Primary care physician: Roma Perez MD Consults: 07/03/23 23:38 Consult to Cardiology Routine Reason for consultation: chest pain Has provider been notified: Yes Attending physician on discharge: Shaikh Chandrakant Discharging clinician: Shaikh Chandrakant DS: Diagnosis Discharge Diagnosis (1) Chest pain: Assessment and plan: Trop x 3 negative. Non specific T wave changes. CP free since admission 2D ECHO - no sig abnormality noted. Nuclear stress test showed no evidence of reversible ischemia. Qualifiers: Chest pain type: unspecified Qualified Code(s): R07.9 - Chest pain, unspecified (2) Coronary artery disease: Assessment and plan: Prior hx of CAD. SHould be on ASA - will start on dc. Qualifiers: Associated angina: without angina Coronary Disease-Associated Artery/Lesion type: [place] artery [place] vs. transplanted heart: [place] heart Qualified Code(s): I25.10 - Atherosclerotic heart disease of [place] coronary artery without angina pectoris (3) COPD (chronic obstructive pulmonary disease): Assessment and plan: On symbicort. Cw same as outpatient. 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 Will need Pelvic US as outpatient. DS: Summary Hospital Course Hospital Course: 68 y o female with prior hx of CAD s/p PCI about 25 years ago, was in usual state of health when she started to experience midsternal chest pain, associated with SOB, lightheadedness and was brought to ED by her friend. Her symptoms resolved about an hour or so and resolved by the time, she reached ED. She was admitted for chest pain. She remained CP free during hospital admission. Cardiac enzymes were negative. ECHO - no sig abnormality noted. Nuclear stress test showed - no reversible ischemia Will start on ASA for sec prevention with hx of CAD, T2 DM Status at Discharge Functional status at discharge: independent ambulation Overall status at discharge: patient is back to baseline Time Spent with Patient Time attestation: Total time spent providing and/or coordinating discharge services: Time spent: greater than 30 minutes Exam Constitutional Vital Signs, click to edit/add: Last Vital Signs Temp 97.8 F 07/05/23 07:52 Pulse 91 H 07/05/23 11:30 Resp 20 07/05/23 11:17 BP 136/72 07/05/23 11:17 Pulse Ox 94 L 07/05/23 11:30 O2 Del Method Room Air 07/05/23 07:52 Documenting provider has reviewed patient's vital signs: yes Common normals: no apparent distress and oriented x3 General appearance: cooperative Respiratory Common normals: normal respiratory effort and clear to auscultation bilaterally Effort & inspection: able to speak in complete sentences Auscultation: clear to auscultation bilaterally Cardio Common normals: regular rate, S1 normal heart sound and S2 normal heart sound Rate: regular rate Heart sounds: S1 normal and S2 normal GI Common normals: Normal to inspection, nondistended, normoactive bowel sounds present, soft to palpation, non-tender and no hepatosplenomegaly Palpation: soft and no hepatosplenomegaly Neuro Common normals: oriented x3, moves all extremities and no focal motor deficits DS: Data Data Completed and Pending Labs on day of discharge: Labs from last 24 hours 07/05/23 07/04/23 07/04/23 07:24 21:49 15:44 POC Glucose 112 H 110 H 115 H 07/04/23 15:42 POC Glucose 135 H Discharge Plan Discharge Disposition: Home, Self-Care Condition: Fair Discharge Medications: New aspirin 81 mg tablet,chewable 81 mg PO DAILY Qty: 30 0RF Continued levothyroxine 75 mcg tablet 75 mcg PO DAILY lisinopril 10 mg tablet 10 mg PO DAILY metformin 500 mg tablet 500 mg PO DAILY albuterol sulfate 90 mcg/actuation HFA aerosol inhaler 2 puff INHALATION Q6H budesonide-formoterol [Symbicort] 160-4.5 mcg/actuation HFA aerosol inhaler 2 puff inhalation Q12H simvastatin 40 mg tablet 40 mg PO DAILY Activity: increase activity as tolerated Diet: advance to your usual diet Forms: Portal Instructions Follow Up Appointments: f/u PCP in one week F/u cardiology in 2-3 weeks
--- OUTSIDE RECORDS SUMMARY | 2023-07-17 02:13 | XMS_ITS | CCD ---
Author Name Unknown Address [address] [place] [id number] Organization [facility] Care Team Providers Care Security Technician Name Role Phone DR TATYANA CHRISTENSEN Attending Unavailable FERMIN, DR TATYANA Jones Consulting Unavailable FERMIN, DR TATYANA Jones Admitting Unavailable DAVID GONZALEZ Consulting Unavailable Ernesto Diaz Consulting Unavailable EMERY BLANDON Attending Unavailable EMERY BLANDON Consulting Unavailable EMERY BLANDON Admitting Unavailable João Lopez Consulting Unavailable Roma Perez Unavailable ROMA PEREZ Referring Unavailable ROMA PEREZ Attending Unavailable Allergies Allergy Classification Reported Allergen(s) Allergy Type Date of Onset Reaction(s) Facility (1 source) Ciprofloxacin Drug Allergy 01-17-20 13 [facility] Repository (7 sources) Ciprofloxacin Drug Allergy Unknown, Comment:Isidro jacob [facility] Other (2 sources) Allergies Reconciled Propensity to adverse reactions Unknown [facility] Other Medications Current Medications Medication Drug Class(es) Dates Sig (Normalized) Sig (Original) [id number] 200 actuat albuterol 0.09 mg/actuat metered dose inhaler (5 sources) beta2-Adrenergic Agonist Start: 09-25-2022 take 2 puff(s) by inhalation four times daily as needed Ventolin HFA 108 (90 Base) MCG/ACT 2 puffs as needed Inhalation four times daily for 90 days Aug, Active take 2 puff(s) by in halation four times daily as needed Albuterol Sulfate HFA 108 (90 Base) MCG/ACT INHALE 2 PUFFS FOUR TIMES DAILY NEEDED for 75 Active take 2 puff(s) by in halation four times daily as needed Albuterol Sulfate HFA 108 (90 Base) MCG/ACT INHALE 2 PUFFS FOUR TIMES DAILY NEEDED for 75 Active 120 actuat budesonide 0.16 mg/actuat / formoterol fumarate 0.0045 mg/actuat metered dose inhaler (5 sources) Corticosteroid, beta2-Adrenergic Agonist Start: 09-21-2022 take 2 puff(s) by inhalation twice daily Symbicort 160-4.5 MCG/ACT 2 puffs Inhalation Twice a day for 90 days Aug, Active take 2 puff(s) by inhalation twi ce daily Symbicort 160-4.5 MCG/ACT INHALE 2 PUFFS TWICE DAILY for 90 Active levothyroxine sodium 0.075 m g oral tablet (5 sources) l-Thyroxine Levothyroxine So dium 75 MCG TAKE 1 TABLET EVERY DAY for 90 Active Levothyroxine So dium 75 MCG TAKE 1 TABLET EVERY DAY for 90 Active lisinopril 10 mg oral tablet (5 sources) Angiotensin Converting Enzyme Inhibitor Lisinopril 10 MG TAKE 1 TABLET EVERY DAY for 90 Active metFORMIN hydrochloride 500 mg oral tablet (5 sources) Biguanide take 1 tablet by mouth every twenty-four hours metFORMIN HCl 500 MG 1 tablet with a meal Orally Once a day for 90 days Active simvastatin 40 mg oral tablet (5 sources) HMG-CoA Reductase Inhibitor Start: take 1 tablet by mouth every twenty-four hours Simvastatin 40 MG 1 tablet Orally Once a day for 90 days Aug, Active Problems Problem Classification Problem Date Documented Date Episodic/Chronic Chronic obstructive pulmonary disease and bronchiectasis (17 sources) Chronic obstructive pulmonary disease with (acute) exacerbation; 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: [Acute exacerbation of chronic obstructive airways disease] Onset: 11-14-2021 Chronic Coronary atherosclerosis and other heart disease (9 sources) Atherosclerotic heart disease of [place] coronary artery without angina pectoris; 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: [Old myocardial infarction] Onset: 11-13-2021 Chronic Diabetes mellitus with complications (7 sources) Hyperglycemia due to type 2 diabetes mellitus; 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: [Type 2 diabetes mellitus with hyperglycemia] Chronic Disorders of lipid metabolism (8 sources) Pure hypercholesterolemia, unspecified; 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: [Hyperlipidemia] Onset: 11-13-2021 Chronic Esophageal disorders (1 source) Gastro-esophageal reflux disease without esophagitis; 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: [GERD WITHOUT ESOPHAGITIS] Onset: 11-13-2021 Chronic Essential hypertension (10 sources) Essential (primary) hypertension; 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: [Essential hypertension] Onset: 11-13-2021 Chronic Mycoses (2 sources) Candidal stomatitis; 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: [Candidiasis of mouth] Episodic Osteoarthritis (7 sources) Secondary osteoarthritis; 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: [Secondary osteoarthritis, unspecified site] Chronic Other aftercare (1 source) 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; 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: [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] Onset: 11-13-2021 Episodic Other aftercare (1 source) terminal 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 supervisor (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) use of oral hypoglycemic drugs; 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: [MECHANICAL ENGINEERING TEACHER USE ORAL HYPOGLYCEMIC DX] Onset: 11-13-2021 Episodic Other aftercare (1 source) Other lobsterman (current) drug therapy; 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: [OTH CORRECTION CURRENT DRUG THERAPY] Onset: 11-13-2021 Episodic Other lower respiratory disease (4 sources) Shortness of breath; 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: [SHORTNESS OF BREATH] Onset: 11-10-2021 Episodic Other lower respiratory disease (1 source) Solitary pulmonary nodule; 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: [SOLITARY PULMONARY NODULE] Onset: 11-14-2021 Episodic Other non-traumatic joint disorders (4 sources) Shoulder joint pain; 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: [Pain in right shoulder] Episodic Other non-traumatic joint disorders (1 source) Pain in right shoulder; 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: [Pain in right shoulder] Episodic Peripheral and visceral atherosclerosis (1 source) Peripheral vascular disease, unspecified; 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: [PERIPHERAL VASCULAR DISEASE UNS] Onset: 11-14-2021 Chronic Residual codes; unclassified (1 source) Acquired absence of other specified parts of digestive tract; 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: [ACQ ABSENCE OTH PART DIGESTV TRACT] Onset: 11-13-2021 Episodic Residual codes; unclassified (1 source) Asymptomatic menopausal state; 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: [Asymptomatic menopausal state] Episodic Residual codes; unclassified (1 source) Postmenopausal state; 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: [Asymptomatic menopausal state] Episodic Screening and history of mental health and substance abuse codes (3 sources) Personal history of nicotine dependence; 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: [Nicotine dependence] Onset: 11-13-2021 Episodic Thyroid disorders (8 sources) Hypothyroidism, unspecified; 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: [Hypothyroidism] Onset: 11-13-2021 Chronic Unclassified (1 source) CONTACT W/AND (SUSP) EXPOS COVID-19; 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: [CONTACT W/AND (SUSP) EXPOS COVID-19] Onset: 11-14-2021 Results Test Name Value Interpretation Reference Range Facil ity Consenton 05-16-2023 Consent [id number]#1.00CD :127 Normal [facility] PT - Assessmentson PT - Assessments [id number]#1.00CD:127 Normal [facility] Coding Summary.on 12-03-2022 Coding Summary. CD:[id number] [file] [id number] (more content not included)... Normal [facility] Outside Recordson 11-29-2022 Outside Records [id number]:127 Normal [facility] PT - Orderson 11-29-2022 PT - Orders [id number] D:127 Normal [facility] CTA CHEST WO W CONon 022 CTA CHEST WO W CON CTA OF THE CHEST HISTORY: Shortness of breath. COMPARISON: None. TECHNIQUE: CT angiography of the pulmonary arteries following the administration of intravenous contrast. Coronal and sagittal MIP images were performed. Dose reduction techniques were achieved by using automated exposure control and/or adjustment of mA and/or kV according to patient size and/or use of iterative reconstruction technique. FINDINGS: There is no acute pulmonary embolism. There is no evidence of aortic dissection. There are no enlarged mediastinal or hilar lymph nodes. There is no pericardial effusion. There are emphysematous changes. There is a left lower lobe 7 mm pulmonary nodule. There are no pleural effusions. There is no pneumothorax. There are no acute bony abnormalities. IMPRESSION: No acute pulmonary embolism. Emphysema. Left lower lobe 7 mm pulmonary nodule. Please see below for recommendations. Fleischner Society guidelines for follow-up and management of solitary pulmonary nodules incidentally discovered inpatients 35 years old or older: Nodule size < 6 mm Low-risk patient: No routine follow-up. High-risk patient: Optional CT at 12 months. Nodules < 6 mm do not require routine follow-up, but certain patients at high risk with suspicious nodule morphology, upper lobe location, or both may warrant a 12 month follow-up. Nodule size = 6-8 mm Low-risk patient: CT at 6-12 months, then consider CT at 18-24 months. High-risk patient: CT at 6-12 months, then CT at 18-24 months. Nodule size > 8 mm Low and high-risk patients: Consider CT at 3 months, PET-CT, or tissue sampling Low risk patients include individuals with minimal or absent history of smoking and other known risk factors. High risk patients include individuals with a history of smoking or other known risk factors. Dimensions are an average of the long and short axes, rounded to the nearest millimeter Radiology 2017. Aug 23:452644. DOI: [id number]. Electronically authenticated by: ERNESTO DIAZ Date: 2021-11-10 23:02 Normal [facility] BNPon 11-10-2021 Natriuretic peptide B (Bld) [Mass/Vol] 420.0 pg/mL Normal <=900.[address] [facility] pital Comment on above: Performed By: #### P T, PTT #### [facility] [address] [place] [address] Dr. Brionna Coates CBC AUTO DIFFon 11-10-2021 BASO # 0.0 103/ul Normal 0.0-0.[address] [facility] ospital Comment on above: Performed By: #### C BC #### [facility] [address] [place] [address] Dr. Brionna Coates Basophils/100 WBC (Bld) 0.2 % Normal 0.2-2.0 [facility] Comment on above: Performed By: #### C BC #### [facility] [address] [place] [address] Dr. Brionna Coates EO # 0.0 103/ul Normal 0.0-0.[address] [facility] Comment on above: Performed By: #### C BC #### [facility] [address] [place] [address] Dr. Brionna Coates Eosinophils/100 WBC (Bld) 0.0 % Critically low 0.9-7. 0 [facility] Comment on above: Performed By: #### C BC #### [facility] [address] [place] [address] Dr. Brionna Coates Erythrocyte distribution wid th (RBC) [Ratio] 13.7 % Normal 11.0-15.0 [facility] Comment on above: Performed By: #### C BC #### [facility] [address] [place] [address] Dr. Brionna Coates Hematocrit (Bld) [Volume fraction] 44.5 % Normal 3 6.0-48.0 [facility] Comment on above: Performed By: #### C BC #### [facility] [address] [place] [address] Dr. Brionna Coates Hemoglobin (Bld) [Mass/Vol] 14.0 g/dL Normal 12.0-16. 0 [facility] Comment on above: Performed By: #### C BC #### [facility] [address] [place] [address] Dr. Brionna Coates IG # 0.08 10e3/ul Critically high 0.00-0.03 [facility] Comment on above: Performed By: #### C BC #### [facility] [address] [place] [address] Dr. Brionna Coates IG % 0.5 % Normal 0.0-0.[address] [facility] Comment on above: Performed By: #### C BC #### [facility] [address] [place] [address] Dr. Brionna Coates LYMPH # 1.6 103/ul Normal 1.2-3.[address] [facility] Comment on above: Performed By: #### C BC #### [facility] [address] [place] [address] Dr. Brionna Coates Lymphocytes/100 WBC (Bld) 9.3 % Critically low 20.5-6 0.0 [facility] Comment on above: Performed By: #### C BC #### [facility] [address] [place] [address] Dr. Brionna Coates MANUAL DIFF REQ NO Normal [facility] Comment on above: Performed By: #### C BC #### [facility] [address] [place] [address] Dr. Brionna Coates MCH (RBC) [Entitic mass] 28.7 pg Normal 26.7-34.0 [facility] Comment on above: Performed By: #### C BC #### [facility] [address] [place] [address] Dr. Brionna Coates MCHC (RBC) [Mass/Vol] 31.5 g/dL Normal 29.9-35.2 [facility] Comment on above: Performed By: #### C BC #### [facility] [address] [place] [address] Dr. Brionna Coates MCV (RBC) [Entitic vol] 91.4 fL Normal 81.0-99.0 [facility] Comment on above: Performed By: #### C BC #### [facility] [address] [place] [address] Dr. Brionna Coates MONO # 0.5 103/ul Normal 0.3-0.[address] [facility] Comment on above: Performed By: #### C BC #### [facility] [address] [place] [address] Dr. Brionna Coates Monocytes/100 WBC (Bld) 3.1 % Normal 1.7-12.0 [facility] Comment on above: Performed By: #### C BC #### [facility] [address] [place] [address] Dr. Brionna Coates NEUT # 14.5 103/ul Critically high 1.4-6.5 [facility] Comment on above: Performed By: #### C BC #### [facility] [address] [place] [address] Dr. Brionna Coates Neutrophils/100 WBC (Bld) 86.9 % Critically high 43.0- 75.0 [facility] Comment on above: Performed By: #### C BC #### [facility] [address] [address] [address] Brionna Coates Platelet mean volume (Bld) [ Entitic vol] 12.0 fL Normal 9.5-13.5 [facility] Comment on above: Performed By: #### C BC #### [facility] [address] [place] [address] Dr. Brionna Coates PLT 290 103/ul Normal 150-[address] [facility] ospital Comment on above: Performed By: #### C BC #### [facility] [address] [address] [address] Brionna Coates RBC 4.87 106/ul Normal 4.20-5.40 [facility] Comment on above: Performed By: #### C BC #### [facility] [address] [place] [address] Dr. Brionna Coates WBC 16.7 103/ul Critically high 4.0-11.0 [facility] Comment on above: Performed By: #### C BC #### [facility] [address] [place] [address] Dr. Brionna Coates Covid-19 PCR ([facility])on 10-27 SARS-CoV-2 (COVID-19) RNA ESME+probe Ql (Unsp spec) Not detected Normal NOT DETECTED [facility] Comment on above: Result Comment: When diagnostic testing is negative, the possibility of a false negative should be considered in the context of a patient's recent exposures and the presence of clinical signs and symptoms consistent with SARS-CoV-2. This test is not yet approved or cleared by the [place] FDA. When there are no FDA-approved or cleared tests available, and other criteria are met, FDA can make tests available under an emergency access mechanism called an Emergency Use Authorization (EUA). The EUA for this test is supported by the [place] of Health and Human Service's declaration that circumstances exist to justify the emergency use of in vitro diagnostics for the detection and/or diagnosis of the virus that causes COVID-19. This EUA will remain in effect for the duration of the COVID-19 declaration justifying emergency of IVDs, unless it is terminated or revoked by the FDA (after which the test may no longer be used). Performed By: #### C VDTBH #### [facility] [address] [place] [address] Dr. Brionna Coates D-DIMERon 11-10-2021 D-DIMER 1.12 mg/L FEU Critically high 0.19-0.50 [facility] Comment on above: Performed By: #### P T, PTT #### [facility] [address] [place] [address] Dr. Brionna Coates D-DIMER COMMENTS SEE BELOW Normal [facility] Comment on above: Result Comment: Incr eases in D-Dimer concentration observed with thromboembolic events can be variable due to localization, size, and age of the thrombus. Therefore, a thromboembolic event cannot be diagnosed with certainty on the basis of the reference range. D-Dimers may also be elevated for a variety of disorders including: advanced age, , coronary disease, cancer, liver disease, infection, inflammation, hematoma, DIC, trauma, post-surgery, diabetes, thrombolytic or anticoagulant therapy, stress, and generalized hospitalization. Performed By: #### P T, PTT #### [facility] [address] [place] [address] Dr. Brionna Coates ER URINE PROFILEon 2 Bilirubin Ql (U) Negative Normal NEGATIVE [facility] Comment on above: Performed By: #### P T, PTT #### [facility] [address] [place] [address] Dr. Brionna Coates Clarity (U) CLEAR Normal CLEAR [facility] Comment on above: Performed By: #### P T, PTT #### [facility] [address] [place] [address] Dr. Brionna Coates Color (U) LT. YELLOW Normal YELLOW [facility] ospital Comment on above: Performed By: #### P T, PTT #### [facility] [address] [place] [address] Dr. Brionna Coates ERUAHD A micrscopic examina tion will be performed if indicated. Normal [facility] Comment on above: Performed By: #### P T, PTT #### [facility] [address] [place] [address] Dr. Brionna Coates Glucose Ql (U) Negative Normal NEGATIVE [facility] Comment on above: Performed By: #### P T, PTT #### [facility] [address] [place] [address] Dr. Brionna Coates Hemoglobin Ql (U) Negative Normal NEGATIVE [facility] Comment on above: Performed By: #### P T, PTT #### [facility] [address] [place] [address] Dr. Brionna Coates Ketones Ql (U) Negative Normal NEGATIVE [facility] Comment on above: Performed By: #### P T, PTT #### [facility] [address] [place] [address] Dr. Brionna Coates LEUKOCYTES Negative Normal NEGATIVE [facility] Comment on above: Performed By: #### P T, PTT #### [facility] [address] [place] [address] Dr. Brionna Coates Nitrite Ql (U) Negative Normal NEGATIVE [facility] Comment on above: Performed By: #### P T, PTT #### [facility] [address] [place] [address] Dr. Brionna Coates pH (U) 6.0 [pH] Normal 5-[address] [facility] Comment on above: Performed By: #### P T, PTT #### [facility] [address] [place] [address] Dr. Brionna Coates SPEC GRAVITY 1.010 Normal 1.005-<=1.[address] [facility] Comment on above: Performed By: #### P T, PTT #### [facility] [address] [place] [address] Dr. Brionna Coates UA PROTEIN Negative Normal NEGATIVE/ TRACE [facility] Comment on above: Performed By: #### P T, PTT #### [facility] [address] [place] [address] Dr. Brionna Coates UR MICRO IND NOT INDICATED Normal [facility] Comment on above: Performed By: #### P T, PTT #### [facility] [address] [place] [address] Dr. Brionna Coates Urobilinogen Qn (U) 0.2 {Gonzalez'U}/dL Normal 0.2 - 1. 0 [facility] Comment on above: Performed By: #### P T, PTT #### [facility] [address] [place] [address] Dr. Brionna Coates INFLUENZA A AND B AGon 11-10 INFLUANE SEE BELOW Normal [facility] ospital Comment on above: Result Comment: Nega tive for Flu A protein angiten. Infection due to Flu A cannot be ruled out. Flu A angiten in the sample may be below the detection limit of the test. Performed By: #### I NFLUAB #### [facility] [address] [place] [address] Dr. Brionna Coates INFLUBNEGH SEE BELOW Normal [facility]spital Comment on above: Result Comment: Nega tive for Flu B protein antigen. Infection due to Flu B cannot be ruled out. Flu B antigen in the sample may be below the detection limit of the test. Performed By: #### I NFLUAB #### [facility] [address] [place] [address] Dr. Brionna Coates INFLUENZA A AG Negative Normal NEGATIVE SEE COMMENT [facility] Comment on above: Performed By: #### I NFLUAB #### [facility] [address] [place] [address] Dr. Brionna Coates INFLUENZA B AG Negative Normal NEGATIVE SEE COMMENT [facility] Comment on above: Performed By: #### I NFLUAB #### [facility] [address] [place] [address] Dr. Brionna Coates INTERNAL CONTROLS Within Normal Limits Normal Wi thin Normal Limits [facility] Comment on above: Performed By: #### I NFLUAB #### [facility] [address] [place] [address] Dr. Brionna Coates PROF 14(COMP METB)on 022 Albumin [Mass/Vol] 3.7 g/dL Normal 3.4-5.0 [facility] Comment on above: Performed By: #### P T, PTT #### [facility] [address] [address] [address] Brionna Coates Albumin/Globulin [Mass ratio] 0.9 {ratio} Normal [facility] Comment on above: Performed By: #### P T, PTT #### [facility] [address] [address] [address] Brionna Coates ALP [Catalytic activity/Vol] 93 U/L Normal 46-116 [facility] Comment on above: Performed By: #### P T, PTT #### [facility] [address] [place] [address] Dr. Brionna Coates ALT [Catalytic activity/Vol] 15 U/L Normal 14-59 [facility] Comment on above: Performed By: #### P T, PTT #### [facility] [address] [place] [address] Dr. Brionna Coates Anion gap [Moles/Vol] 17.8 mmol/L Normal [facility] Comment on above: Performed By: #### P T, PTT #### [facility] [address] [place] [address] Dr. Brionna Coates AST [Catalytic activity/Vol] 10 U/L Critically low 15- 37 [facility] Comment on above: Performed By: #### P T, PTT #### [facility] [address] [place] [address] Dr. Brionna Coates Bilirubin [Mass/Vol] 0.3 mg/dL Normal 0.2-1.3 [facility] Comment on above: Performed By: #### P T, PTT #### [facility] [address] [place] [address] Dr. Brionna Coates Calcium [Mass/Vol] 9.5 mg/dL Normal 8.5-10.1 [facility] Comment on above: Performed By: #### P T, PTT #### [facility] [address] [place] [address] Dr. Brionna Coates Chloride [Moles/Vol] 102 mmol/L Normal 98-107 [facility] Comment on above: Performed By: #### P T, PTT #### [facility] [address] [address] [address] Brionna Coates CO2 [Moles/Vol] 22.2 mmol/L Normal 22.0-30.0 [facility] Comment on above: Performed By: #### P T, PTT #### [facility] [address] [address] [address] Brionna Coates Creatinine [Mass/Vol] 0.96 mg/dL Normal 0.52-1.04 [facility] Comment on above: Performed By: #### P T, PTT #### [facility] [address] [address] [address] Brionna Coates EGFR-AF MOLDOVAN >60 Normal >=60 [facility] Comment on above: Performed By: #### P T, PTT #### [facility] [address] [address] [address] Brionna Coates EGFR-NON AF MOLDOVAN 58 mL/min/1.73m2 Critically low >=60 [facility] Comment on above: Performed By: #### P T, PTT #### [facility] [address] [address] [address] Brionna Coates Globulin (S) [Mass/Vol] 4.3 g/dL Normal [facility] Comment on above: Performed By: #### P T, PTT #### [facility] [address] [address] [address] Brionna Coates Glucose [Mass/Vol] 147 mg/dL Critically high 74-106 [facility] Comment on above: Performed By: #### P T, PTT #### [facility] [address] [address] [address] Brionna Coates Potassium [Moles/Vol] 4.0 mmol/L Normal 3.4-5.0 [facility] Comment on above: Performed By: #### P T, PTT #### [facility] [address] [address] [address] Brionna Coates Protein [Mass/Vol] 8.0 g/dL Normal 6.1-8.2 [facility] Comment on above: Performed By: #### P T, PTT #### [facility] [address] [place] [address] Dr. Brionna Coates Sodium [Moles/Vol] 138 mmol/L Normal 137-145 [facility] Comment on above: Performed By: #### P T, PTT #### [facility] [address] [place] [address] Dr. Brionna Coates Urea nitrogen [Mass/Vol] 20.0 mg/dL Critically high 7.0-18 .0 [facility] Comment on above: Performed By: #### P T, PTT #### [facility] [address] [place] [address] Dr. Brionna Coates Urea nitrogen/Creatinine [Mass ratio] 20.8 mg/mg Normal [facility] Comment on above: Performed By: #### P T, PTT #### [facility] [address] [place] [address] Dr. Brionna Coates PROTIMEon 11-10-2021 INR Coag (PPP) [Relative time] {INR} Normal [facility] Comment on above: Performed By: #### P T, PTT #### [facility] [address] [place] [address] Dr. Brionna Coates INR GUIDELINES SEE BELOW Normal [facility] Comment on above: Result Comment: [place] RED INR: 2.0 - 3.0 CONDITIONS NOT LISTED BELOW 2.5 - 3.5 FOR PROSTHETIC HEART VALVE REPLACEMENT 2.5 - 3.5 RECURRENT THROMBOSIS Performed By: #### P T, PTT #### [facility] [address] [place] [address] Dr. Brionna Coates PT Coag (PPP) [Time] 9.8 s Normal 9.0-11.6 [facility] Comment on above: Performed By: #### P T, PTT #### [facility] [address] [place] [address] Dr. Brionna Coates PTTon 11-10-2021 aPTT Coag (Bld) [Time] s Critically low 22.3-36.2 [facility] Comment on above: Performed By: #### P T, PTT #### [facility] [address] [place] [address] Dr. Brionna Coates TROPONIN, HIGH SENSITIVITYon 11-10-2021 HSTROP 9.1 pg/mL Normal 4.0-35.[address] [facility] Comment on above: Result Comment: CUT- OFF POINTS HAVE BEEN ESTABLISHED BASED ON THE FOURTH UNIVERSAL DEFINITIONS OF MYOCARDIAL INFARCTION. THE UPPER REFERENCE LIMIT (URL) OF TROPONIN, DEFINED THE 99TH PERCENTILE OF cTnI DISTRIBUTION IN A REFERENCE POPULATION, HAS BEEN CONFIRMED THE DECISION THRESHOLD FOR AL DIAGNOSIS. Performed By: #### P T, PTT #### [facility] [address] [address] [address] Brionna Coates XR CHEST 1 Von 11-10-2021 XR CHEST 1 V EXAM: XR CHEST 1 V REASON FOR EXAM: Female, 66 years, SHORTNESS OF BREATH. TECHNIQUE: A single AP view of the chest is performed. COMPARISON: None. FINDINGS: Cardiac monitoring leads overlie the chest. The lungs are hyperinflated. There is no focal consolidation. Normal pleura. Normal size heart. Normal mediastinum and kierra. Normal visualized pulmonary arteries. There is calcification of the aortic knob. Normal visualized thoracic spine. Normal visualized ribs, clavicles, and shoulders. There is no demonstrated abnormality of the visualized soft tissue structures of the upper abdomen. IMPRESSION: Hyperinflation, without focal consolidation. Electronically authenticated by: JOÃO LOPEZ Date: 2021-11-09 22:51 Normal [facility] CARDIAC TATYANA ADMITon 022 CK [Catalytic activity/Vol] 38 U/L Normal 30-135 [facility] Comment on above: Performed By: #### C VALERY BMP #### [facility] [address] [address] [address] Brionna Coates CK.MB [Mass/Vol] 2.00 ng/mL Normal <=2.37 [facility] Comment on above: Performed By: #### C VALERY BMP #### [facility] [address] [address] [address] Brionna Coates HSTROP 8.2 pg/mL Normal 4.0-35.[address] [facility] Comment on above: Result Comment: CUT- OFF POINTS HAVE BEEN ESTABLISHED BASED ON THE FOURTH UNIVERSAL DEFINITIONS OF MYOCARDIAL INFARCTION. THE UPPER REFERENCE LIMIT (URL) OF TROPONIN, DEFINED THE 99TH PERCENTILE OF cTnI DISTRIBUTION IN A REFERENCE POPULATION, HAS BEEN CONFIRMED THE DECISION THRESHOLD FOR AL DIAGNOSIS. Performed By: #### C VALERY, YOLI #### [facility] [address] [place] [address] Dr. Brionna Coates JUNIOR 33.0 ng/mL Normal <=61.[address] [facility] ostal Comment on above: Performed By: #### C VALERY, BMP #### [facility] [address] [place] [address] Dr. Brionna Coates CBC AUTO DIFFon 11-09-2021 BASO # 0.1 103/ul Normal 0.0-0.[address] [facility] Comment on above: Performed By: #### C BC #### [facility] [address] [place] [address] Dr. Brionna Coates Basophils/100 WBC (Bld) 1.0 % Normal 0.2-2.0 [facility] Comment on above: Performed By: #### C BC #### [facility] [address] [place] [address] Dr. Brionna Coates EO # 0.5 103/ul Normal 0.0-0.[address] [facility] Comment on above: Performed By: #### C BC #### [facility] [address] [place] [address] Dr. Brionna Coates Eosinophils/100 WBC (Bld) 5.0 % Normal 0.9-7.0 [facility] Comment on above: Performed By: #### C BC #### [facility] [address] [place] [address] Dr. Brionna Coates Erythrocyte distribution wid th (RBC) [Ratio] 13.6 % Normal 11.0-15.0 [facility] Comment on above: Performed By: #### C BC #### [facility] [address] [place] [address] Dr. Brionna Coates Hematocrit (Bld) [Volume fraction] 42.5 % Normal 3 6.0-48.0 [facility] Comment on above: Performed By: #### C BC #### [facility] [address] [address] [address] Brionna Coates Hemoglobin (Bld) [Mass/Vol] 13.0 g/dL Normal 12.0-16. 0 [facility] Comment on above: Performed By: #### C BC #### [facility] [address] [place] [address] Dr. Brionna Coates IG # 0.03 10e3/ul Normal 0.00-0.03 [facility] Comment on above: Performed By: #### C BC #### [facility] [address] [place] [address] Dr. Brionna Coates IG % 0.3 % Normal 0.0-0.[address] [facility] Comment on above: Performed By: #### C BC #### [facility] [address] [place] [address] Dr. Brionna Coates LYMPH # 2.2 103/ul Normal 1.2-3.[address] [facility] Comment on above: Performed By: #### C BC #### [facility] [address] [place] [address] Dr. Brionna Coates Lymphocytes/100 WBC (Bld) 21.5 % Normal 20.5-60.0 [facility] Comment on above: Performed By: #### C BC #### [facility] [address] [place] [address] Dr. Brionna Coates MANUAL DIFF REQ NO Normal [facility] Comment on above: Performed By: #### C BC #### [facility] [address] [place] [address] Dr. Brionna Coates MCH (RBC) [Entitic mass] 28.4 pg Normal 26.7-34.0 [facility] Comment on above: Performed By: #### C BC #### [facility] [address] [place] [address] Dr. Brionna Coates MCHC (RBC) [Mass/Vol] 30.6 g/dL Normal 29.9-35.2 [facility] Comment on above: Performed By: #### C BC #### [facility] [address] [place] [address] Dr. Brionna Coates MCV (RBC) [Entitic vol] 93.0 fL Normal 81.0-99.0 [facility] Comment on above: Performed By: #### C BC #### [facility] [address] [place] [address] Dr. Brionna Coates MONO # 0.9 103/ul Critically high 0.3-0.[address] [facility] Comment on above: Performed By: #### C BC #### [facility] [address] [place] [address] Dr. Brionna Coates Monocytes/100 WBC (Bld) 8.7 % Normal 1.7-12.0 [facility] Comment on above: Performed By: #### C BC #### [facility] [address] [place] [address] Dr. Brionna Coates NEUT # 6.4 103/ul Normal 1.4-6.[address] [facility] Comment on above: Performed By: #### C BC #### [facility] [address] [place] [address] Dr. Brionna Coates Neutrophils/100 WBC (Bld) 63.5 % Normal 43.0-75.0 [facility] Comment on above: Performed By: #### C BC #### [facility] [address] [place] [address] Dr. Brionna Coates Platelet mean volume (Bld) [ Entitic vol] 11.4 fL Normal 9.5-13.5 [facility] Comment on above: Performed By: #### C BC #### [facility] [address] [place] [address] Dr. Brionna Coates PLT 277 103/ul Normal 150-[address] [facility] Comment on above: Performed By: #### C BC #### [facility] [address] [place] [address] Dr. Brionna Coates RBC 4.57 106/ul Normal 4.20-5.40 [facility] Comment on above: Performed By: #### C BC #### [facility] [address] [address] [address] Brionna Coates WBC 10.0 103/ul Normal 4.0-11.0 [facility] Comment on above: Performed By: #### C BC #### [facility] [address] [place] [address] Dr. Brionna Coates PROF CHEM 8 (BAS METB)on Anion gap [Moles/Vol] 12.9 mmol/L Normal [facility] Comment on above: Performed By: #### C MADM, BMP #### [facility] [address] [place] [address] Dr. Brionna Coates Calcium [Mass/Vol] 9.1 mg/dL Normal 8.5-10.1 [facility] Comment on above: Performed By: #### C MADM, BMP #### [facility] [address] [place] [address] Dr. Brionna Coates Chloride [Moles/Vol] 103 mmol/L Normal 98-107 [facility] Comment on above: Performed By: #### C MADM, BMP #### [facility] [address] [place] [address] Dr. Brionna Coates CO2 [Moles/Vol] 26.6 mmol/L Normal 22.0-30.0 [facility] Comment on above: Performed By: #### C MADM, BMP #### [facility] [address] [place] [address] Dr. Brionna Coates Creatinine [Mass/Vol] 0.75 mg/dL Normal 0.52-1.04 [facility] Comment on above: Performed By: #### C MADM, BMP #### [facility] [address] [place] [address] Dr. Brionna Coates EGFR-AF MOLDOVAN >60 Normal >=60 [facility] Comment on above: Performed By: #### C MADM, BMP #### [facility] [address] [place] [address] Dr. Brionna Coates EGFR-NON AF MOLDOVAN >60 Normal >=60 [facility] Comment on above: Performed By: #### C MADM, BMP #### [facility] [address] [address] [address] Brionna Coates Glucose [Mass/Vol] 115 mg/dL Critically high 74-106 [facility] Comment on above: Performed By: #### C MADM, BMP #### [facility] [address] [address] [address] Brionna Coates Potassium [Moles/Vol] 3.5 mmol/L Normal 3.4-5.0 [facility] Comment on above: Performed By: #### C MADM, BMP #### [facility] [address] [address] [address] Brionna Coates Sodium [Moles/Vol] 139 mmol/L Normal 137-145 [facility] Comment on above: Performed By: #### C MADM, BMP #### [facility] [address] [place] [address] Dr. Brionna Coates Urea nitrogen [Mass/Vol] 16.0 mg/dL Normal 7.0-18.0 [facility] Comment on above: Performed By: #### C MADM, BMP #### [facility] [address] [address] [address] Brionna Coates Urea nitrogen/Creatinine [Mass ratio] 21.3 mg/mg Normal [facility] Comment on above: Performed By: #### C MADM, BMP #### [facility] [address] [place] [address] Dr. Brionna Coates Vital Signs Date Time Vital Sign Value Performing Clinician Facility 11-02-2022 12:00-0400 Body height 170.18 cm Roma Perez Other [facility] Other 11-02-2022 12:00-0400 Body mass index (BMI) [Ratio] 23.18 kg/m2 Roma Perez Other [facility] Other 11-02-2022 12:00-0400 Body weight 67.13 kg Roma Perez Other [facility] Other 11-02-2022 12:00-0400 Diastolic blood pressure 80 mm[Hg] Roma Perez Other [facility] Other 11-02-2022 12:00-0400 SaO2% (BldA) [Mass fraction] 91 % Roma Perez Other [facility] Other 11-02-2022 12:00-0400 Systolic blood pressure 120 mm[Hg] Roma Perez Other [facility] Other Encounters Encounter Date Encounter Type Care Provider Facility Start: 07-05-2023 End: 07-05-2023 ambulatory Roma Perez Other [facility] Other Start: 07-05-2023 Telephone encounter Roma Perez [facility] Start: 05-30-2023 End: 05-30-2023 ambulatory Roma Perez Other [facility] Other Start: 05-30-2023 Telephone encounter Roma Perez [facility] Start: 11-30-2022 End: 03-05-2023 ambulatory ROMA PEREZ Facility[place] [place] Start: 11-14-2022 End: 11-14-2022 ambulatory Roma Perez Other [facility] Other Start: 11-14-2022 Telephone encounter Roma Perez [facility] Start: 11-02-2022 End: 11-02-2022 ambulatory Roma Perez Other [facility] Other Start: 11-02-2022 Office outpatient vi sit 25 minutes Roma Perez [facility] Start: 11-10-2021 End: 11-11-[address] TATYANA CHRISTENSEN Facility: Start: 11-09-2021 End: 11-10-2021 ambulatory EMERY BLANDON Facility: Procedures Date Procedure Procedure Detail Performing Clinician Screening for malign ant neoplasm of breast Roma Perez Other Screening for malign ant neoplasm of colon Roma Ana Other Immunizations Immunization Date Immunization Notes Care Provider Fa raffyty 09-01-2020 COVID-19 Vaccine Pfi zer - Documentation Purposes Only Roma Ana Other [facility] Other 08-11-2020 COVID-19 Vaccine Pfi zer - Documentation Purposes Only Roma Ana Other [facility] Other Payers Date Payer Category Payer Private Health Insurance [id number] 1959 Medicaid [id number] 1959 Unknown [id number] 1955 Unknown [id number] 1955 Unknown [id number] [id number] [id number] 1955 Unknown [id number] Medicare [id number] 2.1 [id number] Social History Date Type Detail Facility Unknown if ever smoked [facility] Other Sex Assigned At Sex Assigned At Bir th [facility] Other Evaluation note 11-02-2022 Note Date & Type Note Facility 11-02-2022 Evaluation note Encounter Date Diagnosis Assessment Notes Oct, COPD (chronic obstructive pulmonary disease) (ICD-10 - J44.9) Continue follow-up with pulmonology. Continue medications as prescribed. Scooter would help with her breathing issues getting safely to necessary locations. 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 Would also benefit from the scooter to help in this problem. [facility] Other Evaluation note 11-02-2022 Note Date & Type Note Facility 11-02-2022 Evaluation note Encounter Date Diagnosis Assessment Notes Oct, COPD (chronic obstructive pulmonary disease) (ICD-10 - J44.9) Continue follow-up with pulmonology. Continue medications as prescribed. Scooter would help with her breathing issues getting safely to necessary locations. Pt needs power wheelchair in home. 11/16/22. 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 Would also benefit from the scooter to help in this problem. Pt needs power wheelchair in home 11/16/22 [facility] Other Evaluation note Note Date & Type Note Facility Evaluation note No Information [facility] Other History general Narrative - Reported Note Date & Type Note Facility History general Narrative - Reported Type Medical History CAD in [place] artery Medical History Pain in right shoulder Medical History Hyperglycemia due to type 2 diabetes mellitus Medical History Hypothyroidism (acquired) Medical History Essential hypertension Medical History COPD with exacerbation Medical History Hyperlipemia Medical History COPD (chronic obstru ctive pulmonary disease) Surgical History Surgical History CATARACT SURGERY 12/2020 Surgical History CHOLECYSTECTOMY Hospitalization History SEE SURGICAL HX [facility] Other Summary Purpose Family History No Family History Records FoundNo Family History Records Found Advance Directives No Advanced Directives Records FoundNo Advanced Directives Records Found Additional Source Comments INFORMATION SOURCE (unrecogn ized section and content) DATE CREATED AUTHOR 12/28/2021 [facility] DATE CREATED AUTHOR AUTHOR'S ORGANIZ ATION 03/05/2023 [facility] REASON FOR VISIT (unrecogniz ed section and content) F2F FOR [id number] FOR WHEELCHAIRrefillTCM FOR RECORDS PERTAINING TO PATIENTS WHO ARE OR HAVE BEEN ENROLLED IN A CHEMICAL DEPENDENCY/SUBSTANCEABUSE PROGRAM, SOME INFORMATION MAY BE OMITTED. This clinical summary was aggregated from multiple sources. Caution should be exercised in using it in the provision of clinical care. This summary normalizes information from multiple sources, and as a consequence, information in this document may materially change the coding, format and clinical context of patient data. In addition, data may be omitted in some cases. CLINICAL DECISIONS SHOULD BE BASED ON THE PRIMARY CLINICAL RECORDS. [facility] [employer] [facility]. provides no warranty or guarantee of the accuracy or completeness of information in this document.
== END 2023-07-05 15:27 | disposition home or self-care (01) ==
LOC: ER 19:16 → ICU 21:44
PROVIDERS: Emergency Medicine; Internal Medicine; Admitting Provider Internal Medicine; Emergency Provider Emergency Medicine; PCP Family Medicine; Visit Provider Internal Medicine Interventional Cardiology
DX: R07.9 Chest pain, unspecified (principal); I25.10 Atherosclerotic heart disease of native coronary artery without angina pectoris; J44.9 Chronic obstructive pulmonary disease, unspecified; E11.9 Type 2 diabetes mellitus without complications; E03.9 Hypothyroidism, unspecified; E78.5 Hyperlipidemia, unspecified; N83.201 Unspecified ovarian cyst, right side; R06.02 Shortness of breath; I25.2 Old myocardial infarction; Z98.891 History of uterine scar from previous surgery; Z90.49 Acquired absence of other specified parts of digestive tract; Z90.89 Acquired absence of other organs; Z87.891 Personal history of nicotine dependence; Z79.899 Other long term (current) drug therapy; Z79.890 Hormone replacement therapy; Z79.84 Long term (current) use of oral hypoglycemic drugs; Z95.5 Presence of coronary angioplasty implant and graft
CPT/HCPCS: 36415; 36416; 71045; 71275; 74174; 76775; 78452; 80048; 80053; 80061; 82948; 83036; 83605; 83735; 83880; 84484; 85025; 85610; 93005; 93017; 93306; 94640; 96365; 96375; 99285; A9500; G0378; J2785; Q3014; Q9967

== ENCOUNTER 2024-06-13 09:54 | Outpatient (OUT) | payer MEDICARE, MEDICAID, SELFPAY ==
--- OUTSIDE RECORDS SUMMARY | 2024-06-13 09:57 | XMS_ITS | CCD ---
Author Organization [facility] Care Team Providers Care Electrical Laboratory Technician Name Role Phone DR TATYANA CHRISTENSEN [...] (1 source) Ciprofloxacin Drug Allergy 01-17-20 13 [facility] Repository (15 sources) Ciprofloxacin Drug Allergy Unknown, Comment:Isidro jacob BagThat Other (2 sources) Allergies Reconciled Propensity to adverse reactions Unknown BagThat Other Medications Current Medications Medication Drug Class(es) Dates Sig (Normalized) Sig (Original) [id number] 200 actuat albuterol 0.09 mg/actuat metered dose inhaler (11 sources) beta2-Adrenergic Agonist Start: 05-20-2024 Albuterol Sulfate Active 2 INH INHALATION Every 6 hours 6.7 May 20, 2024 3:46pm Start: 05-20-2024 End: 05-20-2024 Albuterol Sulfate Discontinu ed 1 INH INHALATION Every 6 hours 6.7 May 20, 2024 12:00am May 20, 2024 3:46pm Start: 09-25-2022 take 2 puff(s) by in halation four times daily as needed Ventolin HFA 108 (90 Base) MCG/ACT 2 puffs as needed Inhalation four times daily for 90 days Aug, Active take 2 puff(s) by in halation every four hours as needed Albuterol Sulfate HFA 108 (90 Base) MCG/ACT INHALE 2 PUFFS EVERY 4 HOURS NEEDED for 50 Active take 2 puff(s) by in halation [...] formoterol fumarate 0.0045 mg/actuat metered dose inhaler (11 sources) Corticosteroid, beta2-Adrenergic Agonist Start: 04-25-2024 take 2 puff(s) by inhalation twice daily Budesonide-Formoterol (Symbicort) 160-4.5 mcg/actuation HFA aerosol inhaler Active 0 .ROUTE .COMPLEX 3 April 25, 2024 7:40am INHALE 2 PUFFS TWICE DAILY Start: 10-02-2023 End: 04-25-2024 take 2 puff(s) by inhalation twice daily Budesonide-Formoterol (Symbicort) 160-4.5 mcg/actuation HFA aerosol inhaler Discontinued INHALATION October 02, 2023 1:00am April 25, 2024 7:40am FreeTextSig: INHALE 2 PUFFS TWICE DAILY; Note: Source Status: Taking; Refills: 3; Qty: 3 Each; Provider: Aneta Brandon ( ) Start: 09-21-2022 take 2 puff(s) by in halation twice daily Symbicort 160-4.5 MCG/ACT 2 puffs Inhalation Twice a day for 90 days Aug, Active take 2 puff(s) by in halation twice daily Symbicort 160-4.5 MCG/ACT INHALE 2 PUFFS TWICE DAILY for 90 Active escitalopram 20 mg oral tablet (6 sources) Serotonin Reuptake Inhibitor Start: 05-25-2024 take 1 tablet by mouth once daily Escitalopram Oxalate (Lexapro) 20 mg tablet Active 20 MG PO Daily May 25, 2024 12:00am Start: 10-02-2023 End: 05-25-2024 take 1 tablet by mouth once daily Escitalopram Oxalate Discontinued 1 TAB PO Daily October 02, 2023 1:00am May 25, 2024 11:58am FreeTextSi tablet Orally Once a day; Note: Source Status: Refill; Refills: 3; Qty: 90 Tablet; Provider: Aneta Langley Start: 07-11-2023 take 1 tablet by talat th every twenty-four hours Lexapro 10 MG 1 tablet Orally Once a day for 30 day(s) Jun, Active levothyroxine sodium 0.075 mg oral tablet (12 sources) l-Thyroxine Start: 11-28-2023 End: 02-10-2024 Levothyroxine Active 0 .ROUTE .COMPLEX February 10, 2024 10:01am TAKE 1 TABLET EVERY DAY Start: 09-16-2023 End: 11-28-2023 take 75 ug by mouth once daily Levothyroxine Discontin ued 75 MCG PO daily September 16, 2023 1:00am November 28, 2023 12:57pm Levothyroxine So dium 75 MCG TAKE 1 TABLET EVERY DAY for Active Levothyroxine So dium 75 MCG TAKE 1 TABLET EVERY DAY for Active lisinopril 10 mg oral tablet (11 sources) Angiotensin Converting Enzyme Inhibitor Start: 04-21-2024 Lisinopril Active 0 .ROUTE .COMPLEX April 21, 2024 3:18pm TAKE 1 TABLET EVERY DAY Start: 10-02-2023 End: 04-21-2024 take 1 tablet by mouth once daily Lisinopril Discontinued 10 MG PO Daily October 02, 2023 1:00am April 21, 2024 3:18pm FreeTextSig: TAKE 1 TABLET EVERY DAY; Note: Source Status: Taking; Refills: 3; Qty: 90 Tablet; Provider: Aneta Brandon ( ) Lisinopril 10 MG TAKE 1 TABLET EVERY DAY for 90 Active metFORMIN (12 sources) Biguanide Start: 02-10-2024 Metformin Acti ve 0 .ROUTE .COMPLEX February 10, 2024 10:01am TAKE 1 TABLET EVERY DAY Start: 11-28-2023 End: 02-10-2024 Metformin Discontinued 0 .RO [place] .COMPLEX November 28, 2023 12:57pm February 10, 2024 10:01am TAKE 1 TABLET EVERY DAY Start: 09-16-2023 End: 11-28-2023 take 500 mg by mouth once daily Metformin Discontinued 500 MG PO Daily September 16, 2023 1:00am November 28, 2023 12:57pm take 1 tablet by talat th every twenty-four hours metFORMIN HCl 500 MG 1 tablet with a meal Orally Once a day for 90 days Active simvastatin 40 mg oral tablet (11 sources) HMG-CoA Reductase Inhibitor Start: 04-21-2024 Simvastatin Active 0 .ROUTE .COMPLEX April 21, 2024 3:18pm TAKE 1 TABLET EVERY DAY Start: 10-02-2023 End: 04-21-2024 take 1 tablet by mouth once daily Simvastatin Discontinued 40 MG PO Daily October 02, 2023 1:00am April 21, 2024 3:18pm FreeTextSig: TAKE 1 TABLET EVERY DAY; Note: Source Status: Taking; Refills: 3; Qty: 90 Tablet; Provider: Aneta Brandon ( ) Start: 09-21-2022 take 1 tablet by talat th every twenty-four hours Simvastatin 40 MG 1 tablet Orally Once a day for 90 days Aug, Active Problems Problem Classification Problem Date Documented Date Episodic/Chronic Anxiety disorders (7 sources) Generalized anxiety disorder; 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: [Generalized anxiety disorder] Chronic Chronic obstructive pulmonary disease and bronchiectasis (20 sources) Chronic obstructive pulmonary disease with (acute) exacerbation; 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: [Acute exacerbation of chronic obstructive airways disease] Onset: 11-14-2021 Chronic Coronary atherosclerosis and other heart disease (13 sources) Atherosclerotic heart disease of [place] coronary artery without angina pectoris; 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: [Old myocardial infarction] Onset: 11-13-2021 Chronic Diabetes mellitus with complications (13 sources) Hyperglycemia due to type 2 diabetes mellitus; 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: [Type 2 diabetes mellitus with hyperglycemia] 05-25-2024 Chronic Disorders of lipid metabolism (14 sources) Pure hypercholesterolemia, unspecified; 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: [Hyperlipidemia] Onset: 11-13-2021 05-25-2024 Chronic Esophageal disorders (1 source) Gastro-esophageal reflux disease without esophagitis; 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: [GERD WITHOUT ESOPHAGITIS] Onset: 11-13-2021 Chronic Essential hypertension (16 sources) Essential (primary) hypertension; 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: [Essential hypertension] Onset: 11-13-2021 Chronic Mycoses (2 sources) Candidal stomatitis; 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: [Candidiasis of mouth] Episodic Osteoarthritis (11 sources) Secondary osteoarthritis; 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: [Secondary osteoarthritis, unspecified site] Chronic Other aftercare (1 source) skilled nursing (current) use of aspirin; 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: [ART SUPERVISOR CURRENT USE OF ASPIRIN] Onset: 11-13-2021 Episodic Other aftercare (1 source) 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; 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: [ART SUPERVISOR USE ORAL HYPOGLYCEMIC DX] Onset: 11-13-2021 Episodic Other aftercare (1 source) Other care home (current) drug therapy; 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: [OTH RESIDENTIAL CURRENT DRUG THERAPY] Onset: 11-13-2021 Episodic Other lower respiratory disease (4 sources) Shortness of breath; 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: [SHORTNESS OF BREATH] Onset: 11-10-2021 Episodic Other lower respiratory disease (1 source) Solitary pulmonary nodule; 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: [SOLITARY PULMONARY NODULE] Onset: 11-14-2021 Episodic Other non-traumatic joint disorders (8 sources) Shoulder joint pain; 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: [Pain in [...] [Nicotine dependence] Onset: 11-13-2021 Episodic Thyroid disorders (14 sources) Hypothyroidism, unspecified; 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: [Hypothyroidism] Onset: 11-13-2021 05-25-2024 Chronic Unclassified (1 source) CONTACT W/AND (SUSP) EXPOS COVID-19; 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: [CONTACT W/AND (SUSP) EXPOS COVID-19] Onset: 11-14-2021 Results Test Name Value Interpretation Reference Range Facil ity Consenton 12-11-2022 Consent [id number] #1.00CD:127 Normal [facility] PT - Assessmentson PT - Assessments [id number] #1.00CD:127 Normal [facility] Coding Summary.on 12-03-2022 Coding Summary. CD:[id number] Ww+PGhlYWQ+OI0QROEgA 93maEDznD0pI4FARZnRR ywgQVBQTElOSyIgbmFtZ U9kfUCuADRf IC8+AP0bPFEdVnxeeAAy b2A2vTA0X02mxa3nSOnu vXQ8ECWwHeKsragaz6py gQw3UNdmYgzhIjUn WJNhiR14CRX8wR67Ns71 vPEeeWRqc6dqvQd3VzFd XOSuAJH9yCppPFzsz2Pd UOJoP48woQJom6N2 IGNvbGxhcHNlOyBlbXB0 qA1pLBhbpkdpj8uuigha Bvv8id01wYWxc2E8sWG3 Y3LsbkF2ITNivUAf EhlejKCFhH9zektjw6fe btgeOeLmKHMwBKw2OCw8 YLKcjCfkObXoBD75DZR3 OAMuxwUbT4OdUTHe lZcnKdQ6t0Y6Bf4QN7TB VhmkH4LKAQGQPIjvkMW+ PJ07yq11G5ByRimxLvu9 WKHbQRU0zJZ4pD6m SSOzHTmko2E4sEE2L3Dt ntAvuw8uz2dzWSMrPOdu X94mrZGfq4L5FWBpfTS0 NURxuQvjAuUehE63 Oyc+XXEhkPgxh6XaYzfq y2zil6btaIp0RalqDRXz fvIfnWvdQHH6d0NgKx8l RMUyrWY1dJE5jT0u OsLiHjB8VWlwD720EoZe pTLeRxctX83wU6TxnCA+ NASaKvo7QCLprBopLJ8y G4KiAQLorzfscHPt xPvcDG6vUEEktbbtOXEp iL1aFWXnN1m0SdSqZxW5 AWwlQ4LaQANwmesvSu56 gD0qYhNiRqS7EDbv J8EumpT7GBLkfMEbCLpb FAA3J61rq8W5CBDtEAKc JXT4gNK9xW2seUekovcx bGVmdDsgdmVydGlj CSivMDqzL890TIKwqHva PkNvZGluZyBEYXRlOiAg MDUvMDgvMjAyMzwvdGQ+ UDDeJZJ1qEatAXRq vDViUXlsQm6prZjppBgt DY8vXPEccemkEKOdgY0k NXKzqGDtvGwwGF6fZCUr xwyrw394PvFrEKH1 HVNhiNYdQ9CwwA9fRbYo ZSPzAXRbB4VaoLJwJDun U413JMiwBnB0UUYyfmCo D1LcXFUviMjfQkL1 j3U7Dv6Pz7McgogrR0Tm hGNvCzShBnaaDTz8K6Hq PjwvdHI+YC41KMLgBR27 ANi1BIJ5lYagCPjv JMAyC8IkqG1eYaYlPFJz ZGRkOyc+PHRhYmxlIHdp ZHRoPScxMDAlJyBzdHls AE7fUk5uMWDrDVZt wXwttRFyKtYbr5evSDOd RPlkSN8yrHzxK4HuyUL9 STQrf5x7Ih49Y09vP9Dn dXA+BXUtuPE7oTL2 dE6yUbPeIeG5DTtdW708 IoJrjVYdHuufq9gts9gt bNb8NoO2PACbojZupIai VHH7l2GcVs86Q65y IHdpZHRoPSIxNSUiIHZh lXzozj1oxA5rNu2+PGNv wVB9sBA7oN8xXwJrKpA9 CGnmZ188KiAbvWGl Pkxra9sxi7sloNm4AtSd ZNFenjEtiTgxVYX0z5Ft Uv65B4QvnPipl4YeBmh0 ox96pKDnc9F0wGS2 U4IdGMJofaxlfXJfhAar EE6nFXXecuahXODokY0n GDBqH4z6MkHxLfV0TFwo R4JrwhX6HTMjoOQi OEVxcIQJmX8tmaifj1xz mniuZwQyTNPqDEa0VMl1 QGGatNmnNsIhJAB9ZcK9 BKQ3cYVvpG8cdGxe yaijxH2xDgz+OML3yQPw gOTZSE5bMxpkrAV+PHRk BDA8oPdlQEwjMLZbjT3l IXMlZ2a1YxOmBsU4 BBrlG0MreoP6YTCdbVGt GMPzhZLCjD0qpidwn7zx efoeYfQdFBMuWXc0YMq9 LWFsaWduOiBsZWZ0 HkH5WFU3wYJovD5gkVwp vhuwdK3nWdb+QmlydGgg RJP4BAb4H7ZkBci0OWLm cUwuNH8biOQgNUjm Ha1wxMuxuFdqMU1iHICy hhoar110FuVcy4axNMQg xWAlZRjbHRQ4Q09pi6J7 ZEDyLBXaXAO0kGR2 uT6cyWchzfptvUBhcCbf nzJydYcgSMpsOEwsQ504 LKDlsQxiNuTaNYj6X1Az Gfb7UWErrCwmFD3f jEMvBXtfUx0qaHvyiBxo EN8oYIAuftmzg593OnZd b7abNHZjiWNkXCqaUKG6 N47vg9Z0YLLeIVIp HJH0xZW4rJ6ymNuungkj bGVmdDsgdmVydGljYWwt VDlvV115HQAljEygUtVl fAw8T0GfCwy4TQDg hDhgGW2yhJSaESfsNy5j xUkjqGtoGJ1vNOWuzzyg j489JxFpb5nkTICgbAQm BLybQXN2M60fk4A7 OXJiOSZcKHY6eIU4rL3a bGlnbjogbGVmdDsgdmVy mCpkRWhhGJfnS195GWAk cDsnPlBhdGllbnQg ZAwlAOu9D8EoDxgvsCP+ KP84RFBtYC66pWDqwSHy y8xmtDq6AiGkWQArNUG3 kYoaWRimh9LjKZAc X69lqDDhn2U4DPBmhCxc oHHhUzIocEB7mT3rQWuq bhgrx0eftdzkSewsu5zh mo15zF10B68mWQet ZHRoPSIzMCUiIHZhbGln ki6mwA1pFm0+PGNvbCB3 aLW8gP2gMMPiRcR1XYht Y685LnUcfZUjEscg d2jyu4bhpVn8WaU2TNIf oeQqzZpbJHH5s2FwCk76 S90qPBhsWJQiLCXjKFWi FBVrpHmgia2aqA2f Ii8+XGIuiBO6mPO0vR6q FpWhUbL6DYqxX703IfJk bETeMzajM08sA4CxnGU+ JHKbXpc2APDbrOll EW9hoWRkTFstYn0aVKE0 StAdMiQwARicP3AhKQCn hvpqpiwsaEF7TNKeZXYd pD15Ke9llSwkLLQk mJGFxC3rbnbfs2blmzom BtXgGIJbIGo4IGe1SDLp rTdsQdRmBKS5GuF7YHW1 aTKuuF5hmEdaqavy rG3hZ5OgDXXkmbbiNn23 uV9sDhIrVtE7SUuyQdu+ TEVFRFksIENBVEhZIEw8 G7MxRsn2EULubEmg UB7jhOBqGXliDf9ohHea iOpbYS3iAUWkfodgVUCn qB6lBBAjpOXcuQhtLQ4x GHCiamgci955QfGs YMO5MASbfFGdX2OokA0y YkIrQMOwOKDdN7JlxBWm VKsdE344TUkaYcA9FRIt wiAiE5LiHGAdeHgq IxO8r6G5Vf6iTP7kZA8f JSF8GS75XX79tUYyw8E5 cVO3H3WlXRYjeezrbclo lFS0USKaZDUoxZ54 rBCcPJsrPv6rm0G9z383 PLOzOUIriM85St3piVpg ZYKhnLFHkW6migwtg8uf cjogIzAwMDAwMDt0 WJn8XLPhhDprXmBwIYU1 OwB7QDG8eORaoC7phNnd gzvmuC0kJgt+NjcgWWVh wpW2R3LvThk5GITs yYysEK8mgVPpIJihAb8g yEwvuQccGC5nXLVbufdt LFVghP0oNGRzfNRyqTyq LQ4rWTNyvnubg938 WgQpUXA4VZTtqXRqC5Fl vO9kTuNaETYsTJBxW5Zc xJFnGDxgO371BUtpLeD2 MWUumzSkO4JmCLId aZezLqR0y5R7Bf0LZW3e cOC5F2TjYmk7RXNucYre PK0ufVGwEFpfBc9huNva oSvyOJ3wVFDkwomi LLHpeV7vFMYbsIFefUkr UJ7dEWSkhrpxn301CwYe PDC7MCIwdMLrK7FutX7h UtAwCSQwNEHaF8Zn pANcPEwaH410FQmhVaG2 ZXEoejAjY3ObHAIrrItp UzL9y4H3Gg6LAZP4gmOg bve2N3ZuVtrdfFA+ HP34MCDbPO79mFTpxIMi u4yucNt8TmOiVQXjKJB6 iMojXCqfp5LaUELoS77x tGUjr1G4XYOudPme dYDaXuAshYD2aA8sENzm jfcqf9kqnsblJckwb8wg ez55oV90U87oPWpkILVk PSIzMCUiIHZhbGln hx2urX8eLm7+PGNvbCB3 tDO3oG8aRpHfDiT4IIkc H053YtAbqNGdSdkul0pc h8qrtVz9TxUiPDNh xpBkiQejJDD1o4PpEw27 Z94qXLssSAUfDFJrSZAx JMQugRjglw3xeF2jNo6+ ZM1fs1pxjh22yX94 dHI+HIUlIYT1bFynWPji VWBkvJ2aSEbuNmT0PFBp VqKfoZ26wCZhOTnwFk9v rMecrUmcQY8bUPXh fdkwc929HpZif4xtPTNw cPPhBZrpPRG9P32mp5G7 CNFdMEGsLMS7lEV9sN8s bGlnbjogbGVmdDsg bxZlxMzoCKsgSFizA893 MAYmbWqqDpIevMXdB7tg jzYVXO2nHhpyvME+PHRk PPE2oXeqGBurDFBq zI1aGAAaD7a8KnXnZwK8 WPlkG2IzrxM0JFJmlVKf TPObdAONcC0pqksku2oh cjogIzAwMDAwMDt0 ILu4NVGzeXfzOwHwHWL4 BjC5RRK6hNGixC6ywHnj ddtbrT8bUqa+RklOOjwv dGQ+ASDxRUJ6pXkk IJxtKDAkvI2uRNHcO2d5 MlLeGzU2IWlnZ8HyalK1 NCPzpKFfCZCzfOPWmB8y eayjj0mlpjlpVmFz HEPqCWz3HRr7MWLsvZis DhMbLCM5GmI7NDJ1eGDp wL8zoQrpjgenwI8aDio+ TVJOOjwvdGQ+PHRk YFM8bKbmCMwdSCSiwI6b BFZmC4k9RjQdMyX9XNgx P9WttdK9SYVswEMtNIJx lUCFsX8lvwcoo5vr rwvxVaWwDMByFUd9DFx3 UGFdeXtkYqGcTPN5VuO9 NCT7fXRwlB8uhXadoygp jK1aLgs+QQG6YTR5 VU76XM78O1NgSciekRUi bGU+PHRhYmxlIHdpZHRo LNvpWAPrIwPvdGalAY8x Zy6zGEZiFMJwyUuv cHNlOiBj (more content not included)... Normal [facility] Outside Recordson 11-29-2022 Outside Records [id number] #1.00CD:127 Normal [facility] PT - Orderson 11-29-2022 PT - Orders [id number] #1.00CD:127 Normal [facility] CTA CHEST WO W CONon 022 CTA [...] to the nearest millimeter Radiology 2017. Aug 23:613319. DOI: [id number]. Electronically authenticated by: ERNESTO DIAZ Date: 2021-11-10 23:02 Normal [facility] BNPon 11-10-2021 Natriuretic peptide B (Bld) [Mass/Vol] 420.0 pg/mL Normal <=900.0 [facility] Comment on above: Performed By: #### P T, PTT #### [facility] [address] [place] [address] Dr. Brionna Coates CBC AUTO DIFFon 11-10-2021 BASO # 0.0 103/ul Normal 0.0-0.1 [facility] Comment on above: Performed By: #### C BC #### [facility] [address] [place] [address] Dr. Brionna Coates Basophils/100 WBC (Bld) 0.2 % Normal 0.2-2.0 [facility] Comment on above: Performed By: #### C BC #### [facility] [address] [place] [address] Dr. Brionna Coates EO # 0.0 103/ul Normal 0.0-0.7 [facility] Comment on above: Performed By: #### C BC #### [facility] [address] [place] [address] Dr. Brionna Coates Eosinophils/100 WBC (Bld) 0.0 % Critically low 0.9-7.0 [facility] Comment on above: Performed By: #### C BC #### [facility] [address] [place] [address] Dr. Brionna Coates Erythrocyte distribution width (RBC) [Ratio] 13.7 % Normal 11.0-15.0 [facility] Comment on above: Performed By: #### C BC #### [facility] [address] [place] [address] Dr. Brionna Coates Hematocrit (Bld) [Volume fraction] 44.5 % Normal 36.0-48.0 [facility] Comment on above: Performed By: #### C BC #### [facility] [address] [place] [address] Dr. Brionna Coates Hemoglobin (Bld) [Mass/Vol] 14.0 g/dL Normal 12.0-16.0 [facility] Comment on above: Performed By: #### C BC #### [facility] [address] [place] [address] Dr. Brionna Coates IG # 0.08 10e3/ul Critically high 0.00-0.03 [facility] Comment on above: Performed By: #### C BC #### [facility] [address] [place] [address] Dr. Brionna Coates IG % 0.5 % Normal 0.0-0.5 [facility] Comment on above: Performed By: #### C BC #### [facility] [address] [place] [address] Dr. Brionna Coates LYMPH # 1.6 103/ul Normal 1.2-3.8 [facility] Comment on above: Performed By: #### C BC #### [facility] [address] [place] [address] Dr. Brionna Coates Lymphocytes/100 WBC (Bld) 9.3 % Critically low 20.5-60.0 [facility] Comment on above: Performed By: #### C BC #### [facility] [address] [place], [place] [id number] Dr. Brionna Coates MANUAL DIFF REQ NO Normal [facility] Comment on above: Performed By: #### C BC #### [facility] [address] [place] [address] Dr. Brionna Coates MCH (RBC) [Entitic mass] 28.7 pg Normal 26.7-34.0 [facility] Comment on above: Performed By: #### C BC #### [facility] [address] [place] [address] Dr. Brionna Coates MCHC (RBC) [Mass/Vol] 31.5 g/dL Normal 29.9-35.2 [facility] Comment on above: Performed By: #### C BC #### [facility] [address] [place] [address] Dr. Brionna Coates MCV (RBC) [Entitic vol] 91.4 fL Normal 81.0-99.0 [facility] Comment on above: Performed By: #### C BC #### [facility] [address] [place] [address] Dr. Brionna Coates MONO # 0.5 103/ul Normal 0.3-0.8 [facility] Comment on above: Performed By: #### C BC #### [facility] [address] [place] [address] Dr. Brionna Coates Monocytes/100 WBC (Bld) 3.1 % Normal 1.7-12.0 [facility] Comment on above: Performed By: #### C BC #### [facility] [address] [place] [address] Dr. Brionna Coates NEUT # 14.5 103/ul Critically high 1.4-6.5 [facility] Comment on above: Performed By: #### C BC #### [facility] [address] [place] [address] Dr. Brionna Coates Neutrophils/100 WBC (Bld) 86.9 % Critically high 43.0-75.0 [facility] Comment on above: Performed By: #### C BC #### [facility] [address] [place] [address] Dr. Brionna Coates Platelet mean volume (Bld) [Entitic vol] 12.0 fL Normal 9.5-13.5 [facility] Comment on above: Performed By: #### C BC #### [facility] [address] [place] [address] Dr. Brionna Coates PLT 290 103/ul Normal 150-450 [facility] Comment on above: Performed By: #### C BC #### [facility] [address] [place] [address] Dr. Brionna Coates RBC 4.87 106/ul Normal 4.20-5.40 [facility] Comment on above: Performed By: #### C BC #### [facility] [address] [place] [address] Dr. Brionna Coates WBC 16.7 103/ul Critically high 4.0-11.0 [facility] Comment on above: Performed By: #### C BC #### [facility] [address] [place] [address] Dr. Brionna Coates Covid-19 PCR ([facility])on 10-27 SARS-CoV-2 (COVID-19) RNA ESME+probe Ql (Unsp spec) Not detected Normal NOT DETECTED [facility] Comment on above: Result Comment: When diagnostic [...] for this test is supported by the [place] [employer]'s declaration that [...] used). Performed By: #### C VDTBH #### [facility] [address] [place] [address] Dr. Brionna Coates D-DIMERon 11-10-2021 D-DIMER 1.12 mg/L FEU Critically high 0.19-0.50 [facility] Comment on above: Performed By: #### P T, PTT #### [facility] [address] [place] [address] Dr. Brionna Coates D-DIMER COMMENTS SEE BELOW Normal [facility] Comment on above: Result Comment: [...] Performed By: #### P T, PTT #### [facility] [address] [place] [address] Dr. Brionna Coates ER URINE PROFILEon 2 Bilirubin Ql (U) Negative Normal NEGATIVE [facility] Comment on above: Performed By: #### P T, PTT #### [facility] [address] [place] [address] Dr. Brionna Coates Clarity (U) CLEAR Normal CLEAR [facility] Comment on above: Performed By: #### P T, PTT #### [facility] [address] [place] [address] Dr. Brionna Coates Color (U) LT. YELLOW Normal YELLOW [facility] Comment on above: Performed By: #### P T, PTT #### [facility] [address] [place] [address] Dr. Brionna KRISHNA A micrscopic examination will be performed if indicated. Normal [facility] Comment on above: Performed By: #### P T, PTT #### [facility] [address] [place] [address] Dr. Brionna Coates Glucose Ql (U) Negative Normal NEGATIVE [facility] Comment on above: Performed By: #### P T, PTT #### [facility] [address] [place] [address] Dr. Brionna Coates Hemoglobin Ql (U) Negative Normal NEGATIVE [facility] Comment on above: Performed By: #### P T, PTT #### [facility] [address] [place] [address] Dr. Brionna Coates Ketones Ql (U) Negative Normal NEGATIVE [facility] Comment on above: Performed By: #### P T, PTT #### [facility] [address] [place] [address] Dr. Brionna Coates LEUKOCYTES Negative Normal NEGATIVE [facility] Comment on above: Performed By: #### P T, PTT #### [facility] [address] [place] [address] Dr. Brionna Coates Nitrite Ql (U) Negative Normal NEGATIVE [facility] Comment on above: Performed By: #### P T, PTT #### [facility] [address] [place] [address] Dr. Brionna Coates pH (U) 6.0 [pH] Normal 5-9 [facility] Comment on above: Performed By: #### P T, PTT #### [facility] [address] [place] [address] Dr. Brionna Coates SPEC GRAVITY 1.010 Normal 1.005-<=1.[address] [facility] Comment on above: Performed By: #### P T, PTT #### [facility] [address] [place] [address] Dr. Brionna Coates UA PROTEIN Negative Normal NEGATIVE/ TRACE [facility] Comment on above: Performed By: #### P T, PTT #### [facility] [address] [place] [address] Dr. Brionna Coates UR MICRO IND NOT INDICATED Normal [facility] Comment on above: Performed By: #### P T, PTT #### [facility] [address] [place] [address] Dr. Brionna Coates Urobilinogen Qn (U) 0.2 {Gonzalez'U}/dL Normal 0.2 - 1. 0 [facility] Comment on above: Performed By: #### P T, PTT #### [facility] [address] [place] [address] Dr. Brionna Coates INFLUENZA A AND B AGon 11-[facility] Normal [facility] Comment on above: Result Comment: Nega tive for Flu A protein angiten. Infection due to Flu A cannot be ruled out. Flu A angiten in the sample may be below the detection limit of the test. Performed By: #### I NFLUAB #### [facility] [address] [place] [address] Dr. [facility] Normal [facility] Comment on above: Result Comment: Nega tive for Flu B protein antigen. Infection due to Flu B cannot be ruled out. Flu B antigen in the sample may be below the detection limit of the test. Performed By: #### I NFLUAB #### [facility] [address] [place] [address] Dr. Brionna Coates INFLUENZA A AG Negative Normal NEGATIVE SEE COMMENT [facility] Comment on above: Performed By: #### I NFLUAB #### [facility] [address] [place] [address] Dr. Brionna Coates INFLUENZA B AG Negative Normal NEGATIVE SEE COMMENT [facility] Comment on above: Performed By: #### I NFLUAB #### [facility] [address] [place] [address] Dr. Brionna Coates INTERNAL CONTROLS Within Normal Limits Normal Wi thin Normal Limits [facility] Comment on above: Performed By: #### I NFLUAB #### [facility] [address] [place] [address] Dr. Brionna Coates PROF 14(COMP METB)on 022 Albumin [Mass/Vol] 3.7 g/dL Normal 3.4-5.0 [facility] Comment on above: Performed By: #### P T, PTT #### [facility] [address] [place] [address] Dr. Brionna Coates Albumin/Globulin [Mass ratio] 0.9 {ratio} Normal [facility] Comment on above: Performed By: #### P T, PTT #### [facility] [address] [address] [address] Brionna Coates ALP [Catalytic activity/Vol] 93 U/L Normal 46-116 [facility] Comment on above: Performed By: #### P T, PTT #### [facility] [address] [address] [address] Brionna Coates ALT [Catalytic activity/Vol] 15 U/L Normal 14-59 [facility] Comment on above: Performed By: #### P T, PTT #### [facility] [address] [address] [address] Brionna Coates Anion gap [Moles/Vol] 17.8 mmol/L Normal [facility] Comment on above: Performed By: #### P T, PTT #### [facility] [address] [place] [address] Dr. Brionna Coates AST [Catalytic activity/Vol] 10 U/L Critically low 15-37 [facility] Comment on above: Performed By: #### P T, PTT #### [facility] [address] [address] [address] Brionna Coates Bilirubin [Mass/Vol] 0.3 mg/dL Normal 0.2-1.3 [facility] Comment on above: Performed By: #### P T, PTT #### [facility] [address] [address] [address] Brionna Coates Calcium [Mass/Vol] 9.5 mg/dL Normal 8.5-10.1 [facility] Comment on above: Performed By: #### P T, PTT #### [facility] [address] [address] [address] Brionna Coates Chloride [Moles/Vol] 102 mmol/L Normal 98-107 [facility] Comment on above: Performed By: #### P T, PTT #### [facility] [address] [address] [address] Brionna Coates CO2 [Moles/Vol] 22.2 mmol/L Normal 22.0-30.0 [facility] Comment on above: Performed By: #### P T, PTT #### [facility] [address] [address] [address] Brionna Coates Creatinine [Mass/Vol] 0.96 mg/dL Normal 0.52-1.04 [facility] Comment on above: Performed By: #### P T, PTT #### [facility] [address] [address] [address] Brionna Coates EGFR-AF JAPANESE >60 Normal >=60 [facility] Comment on above: Performed By: #### P T, PTT #### [facility] [address] [address] [address] Brionna Coates EGFR-NON AF JAPANESE 58 mL/min/1.73m2 Critically low >=60 [facility] Comment on above: Performed By: #### P T, PTT #### [facility] [address] [address] [address] Brionna Coates Globulin (S) [Mass/Vol] 4.3 g/dL Normal [facility] Comment on above: Performed By: #### P T, PTT #### [facility] [address] [address] [address] Brionna Coates Glucose [Mass/Vol] 147 mg/dL Critically high 74-106 [facility] Comment on above: Performed By: #### P T, PTT #### [facility] [address] [address] [address] Brionna Coates Potassium [Moles/Vol] 4.0 mmol/L Normal 3.4-5.0 [facility] Comment on above: Performed By: #### P T, PTT #### [facility] [address] [address] [address] Brionna Coates Protein [Mass/Vol] 8.0 g/dL Normal 6.1-8.2 [facility] Comment on above: Performed By: #### P T, PTT #### [facility] [address] [address] [address] Brionna Coates Sodium [Moles/Vol] 138 mmol/L Normal 137-145 [facility] Comment on above: Performed By: #### P T, PTT #### [facility] [address] [place] [address] Dr. Brionna Coates Urea nitrogen [Mass/Vol] 20.0 mg/dL Critically high 7.0-18.0 [facility] Comment on above: Performed By: #### P T, PTT #### [facility] [address] [place] [address] Dr. Brionna Coates Urea nitrogen/Creatinine [Mass ratio] 20.8 mg/mg Normal [facility] Comment on above: Performed By: #### P T, PTT #### [facility] [address] [place] [address] Dr. Brionna Coates PROTIMEon 11-10-2021 INR Coag (PPP) [Relative time] {INR} Normal [facility] Comment on above: Performed By: #### P T, PTT #### [facility] [address] [place] [address] Dr. Brionna Coates INR GUIDELINES SEE BELOW Normal [facility] Comment on above: Result Comment: [place] RED INR: 2.0 - 3.0 CONDITIONS NOT LISTED BELOW 2.5 - 3.5 FOR PROSTHETIC HEART VALVE REPLACEMENT 2.5 - 3.5 RECURRENT THROMBOSIS Performed By: #### P T, PTT #### [facility] [address] [place] [address] Dr. Brionna Coates PT Coag (PPP) [Time] 9.8 s Normal 9.0-11.6 [facility] Comment on above: Performed By: #### P T, PTT #### [facility] [address] [place] [address] Dr. Brionna Coates PTTon 11-10-2021 aPTT Coag (Bld) [Time] s Critically low 22.3-36.2 [facility] Comment on above: Performed By: #### P T, PTT #### [facility] [address] [place] [address] Dr. Brionna Coates TROPONIN, HIGH SENSITIVITYon 11-10-2021 HSTROP 9.1 pg/mL Normal 4.0-35.5 [facility] Comment on above: Result Comment: CUT- OFF POINTS HAVE BEEN ESTABLISHED BASED ON THE FOURTH UNIVERSAL DEFINITIONS OF MYOCARDIAL INFARCTION. THE UPPER REFERENCE LIMIT (URL) OF TROPONIN, DEFINED THE 99TH PERCENTILE OF cTnI DISTRIBUTION IN A REFERENCE POPULATION, HAS BEEN CONFIRMED THE DECISION THRESHOLD FOR UT DIAGNOSIS. Performed By: #### P T, PTT #### [facility] [address] [address] [address] Brionna Coates XR CHEST 1 Von [...] JOÃO LOPEZ Date: 2021-11-09 22:51 Normal [facility] CARDIAC TATYANA ADMITon 11-09- 022 CK [Catalytic activity/Vol] 38 U/L Normal 30-135 [facility] Comment on above: Performed By: #### C VALERY, BMP #### [facility] [address] [address] [address] Brionna Coates CK.MB [Mass/Vol] 2.00 ng/mL Normal <=2.37 [facility] Comment on above: Performed By: #### C VALERY, BMP #### [facility] [address] [address] [address] Broinna Coates HSTROP 8.2 pg/mL Normal 4.0-35.5 [facility] Comment on above: Result Comment: CUT- OFF POINTS HAVE BEEN ESTABLISHED BASED ON THE FOURTH UNIVERSAL DEFINITIONS OF MYOCARDIAL INFARCTION. THE UPPER REFERENCE LIMIT (URL) OF TROPONIN, DEFINED THE 99TH PERCENTILE OF cTnI DISTRIBUTION IN A REFERENCE POPULATION, HAS BEEN CONFIRMED THE DECISION THRESHOLD FOR UT DIAGNOSIS. Performed By: #### C VALERY, BMP #### [facility] [address] [place] [address] Dr. Brionna Coates JUNIOR 33.0 ng/mL Normal <=61.5 [facility] Comment on above: Performed By: #### C MADM, BMP #### [facility] [address] [place] [address] Dr. Brionna Coates CBC AUTO DIFFon 11-09-2021 BASO # 0.1 103/ul Normal 0.0-0.1 [facility] Comment on above: Performed By: #### C BC #### [facility] [address] [place] [address] Dr. Brionna Coates Basophils/100 WBC (Bld) 1.0 % Normal 0.2-2.0 [facility] Comment on above: Performed By: #### C BC #### [facility] [address] [place] [address] Dr. Brionna Coates EO # 0.5 103/ul Normal 0.0-0.7 [facility] Comment on above: Performed By: #### C BC #### [facility] [address] [place] [address] Dr. Brionna Coates Eosinophils/100 WBC (Bld) 5.0 % Normal 0.9-7.0 [facility] Comment on above: Performed By: #### C BC #### [facility] [address] [place] [address] Dr. Brionna Coates Erythrocyte distribution width (RBC) [Ratio] 13.6 % Normal 11.0-15.0 [facility] Comment on above: Performed By: #### C BC #### [facility] [address] [place] [address] Dr. Brionna Coates Hematocrit (Bld) [Volume fraction] 42.5 % Normal 36.0-48.0 [facility] Comment on above: Performed By: #### C BC #### [facility] [address] [place] [address] Dr. Brionna Coates Hemoglobin (Bld) [Mass/Vol] 13.0 g/dL Normal 12.0-16.0 [facility] Comment on above: Performed By: #### C BC #### [facility] [address] [place] [address] Dr. Brionna Coates IG # 0.03 10e3/ul Normal 0.00-0.03 [facility] Comment on above: Performed By: #### C BC #### [facility] [address] [place] [address] Dr. Brionna Coates IG % 0.3 % Normal 0.0-0.5 [facility] Comment on above: Performed By: #### C BC #### [facility] [address] [place] [address] Dr. Brionna Coates LYMPH # 2.2 103/ul Normal 1.2-3.8 [facility] Comment on above: Performed By: #### C BC #### [facility] [address] [place] [address] Dr. Brionna Coates Lymphocytes/100 WBC (Bld) 21.5 % Normal 20.5-60.0 [facility] Comment on above: Performed By: #### C BC #### [facility] [address] [place] [address] Dr. Brionna Coates MANUAL DIFF REQ NO Normal [facility] Comment on above: Performed By: #### C BC #### [facility] [address] [place] [address] Dr. Brionna Coates MCH (RBC) [Entitic mass] 28.4 pg Normal 26.7-34.0 [facility] Comment on above: Performed By: #### C BC #### [facility] [address] [place] [address] Dr. Brionna Coates MCHC (RBC) [Mass/Vol] 30.6 g/dL Normal 29.9-35.2 [facility] Comment on above: Performed By: #### C BC #### [facility] [address] [place] [address] Dr. Brionna Coates MCV (RBC) [Entitic vol] 93.0 fL Normal 81.0-99.0 [facility] Comment on above: Performed By: #### C BC #### [facility] [address] [place] [address] Dr. Brionna Coates MONO # 0.9 103/ul Critically high 0.3-0.[address] [facility] Comment on above: Performed By: #### C BC #### [facility] [address] [address] [address] Brionna Coates Monocytes/100 WBC (Bld) 8.7 % Normal 1.7-12.0 [facility] Comment on above: Performed By: #### C BC #### [facility] [address] [place] [address] Dr. Brionna Coates NEUT # 6.4 103/ul Normal 1.4-6.5 [facility] Comment on above: Performed By: #### C BC #### [facility] [address] [place] [address] Dr. Brionna Coates Neutrophils/100 WBC (Bld) 63.5 % Normal 43.0-75.0 [facility] Comment on above: Performed By: #### C BC #### [facility] [address] [place] [address] Dr. Brionna Coates Platelet mean volume (Bld) [Entitic vol] 11.4 fL Normal 9.5-13.5 [facility] Comment on above: Performed By: #### C BC #### [facility] [address] [place] [address] Dr. Brionna Coates PLT 277 103/ul Normal 150-450 [facility] Comment on above: Performed By: #### C BC #### [facility] [address] [place] [address] Dr. Brionna Coates RBC 4.57 106/ul Normal 4.20-5.40 [facility] Comment on above: Performed By: #### C BC #### [facility] [address] [place] [address] Dr. Brionna Coates WBC 10.0 103/ul Normal 4.0-11.0 [facility] Comment on above: Performed By: #### C BC #### [facility] [address] [place] [address] Dr. Brionna Coates PROF CHEM 8 (BAS METB)on Anion gap [Moles/Vol] 12.9 mmol/L Normal [facility] Comment on above: Performed By: #### C VALERY, BMP #### [facility] [address] [place] [address] Dr. Brionna Coates Calcium [Mass/Vol] 9.1 mg/dL Normal 8.5-10.1 [facility] Comment on above: Performed By: #### C VALERY, BMP #### [facility] [address] [place] [address] Dr. Brionna Coates Chloride [Moles/Vol] 103 mmol/L Normal 98-107 [facility] Comment on above: Performed By: #### C VALERY, BMP #### [facility] [address] [place] [address] Dr. Brionna Coates CO2 [Moles/Vol] 26.6 mmol/L Normal 22.0-30.0 [facility] Comment on above: Performed By: #### C VALERY, BMP #### [facility] [address] [place] [address] Dr. Brionna Coates Creatinine [Mass/Vol] 0.75 mg/dL Normal 0.52-1.04 [facility] Comment on above: Performed By: #### C VALERY, BMP #### [facility] [address] [place] [address] Dr. Brionna Coates EGFR-AF JAPANESE >60 Normal >=60 [facility] Comment on above: Performed By: #### C VALERY, BMP #### [facility] [address] [place] [address] Dr. Brionna Coates EGFR-NON AF JAPANESE >60 Normal >=60 [facility] Comment on above: Performed By: #### C VALERY, BMP #### [facility] [address] [place] [address] Dr. Brionna Coates Glucose [Mass/Vol] 115 mg/dL Critically high 74-106 [facility] Comment on above: Performed By: #### C VALERY, BMP #### [facility] [address] [place] [address] Dr. Brionna Coates Potassium [Moles/Vol] 3.5 mmol/L Normal 3.4-5.0 [facility] Comment on above: Performed By: #### C EDEM, BMP #### [facility] [address] [address] [address] Brionna Coates Sodium [Moles/Vol] 139 mmol/L Normal 137-145 [facility] Comment on above: Performed By: #### C VALERY, BMP #### [facility] [address] [address] [address] Brionna Coates Urea nitrogen [Mass/Vol] 16.0 mg/dL Normal 7.0-18.0 [facility] Comment on above: Performed By: #### C VALERY, BMP #### [facility] [address] [place] [address] Dr. Brionna Coates Urea nitrogen/Creatinine [Mass ratio] 21.3 mg/mg Normal [facility] Comment on above: Performed By: #### C VALERY, BMP #### [facility] [address] [place] [address] Dr. Brionna Coates Vital Signs Date Time Vital Sign Value Performing Clinician Facility 05-25-2024 11:40-0400 Body height 170.18 cm [facility] 07-11-2023 14:30-0500 Body height 170.18 cm Roma Perez Other [facility] Other 07-11-2023 14:30-0500 Body mass index (BMI) [Ratio] 23.18 kg/m2 Roma Perez Other [facility] [employer] Other 07-11-2023 14:30-0500 Body weight 67.13 kg Roma Perez Other [facility] Other 07-11-2023 14:30-0500 Diastolic blood pressure 78 mm[Hg] Roma Perez Other [facility] Other 07-11-2023 14:30-0500 SaO2% (BldA) [Mass fraction] 98 % Roma Perez Other [facility] Other 07-11-2023 14:30-0500 Systolic blood pressure 145 mm[Hg] Roma Perez Other [facility] Other 11-02-2022 12:00-0400 Body height 170.18 cm Roma Perez Other [facility] Other 11-02-2022 12:00-0400 Body mass index (BMI) [Ratio] 23.18 kg/m2 Roma Perez Other [facility] Other 11-02-2022 12:00-0400 Body weight 67.13 kg Roma Perez Other [facility] Other 11-02-2022 12:00-0400 Diastolic blood pressure 80 mm[Hg] Roma Perez Other [facility] Other 11-02-2022 12:00-0400 SaO2% (BldA) [Mass fraction] 91 % Roma Perez Other [facility] Other 11-02-2022 12:00-0400 Systolic blood pressure 120 mm[Hg] Roma Perez Other [facility] Other Encounters Encounter Date Encounter Type Care Provider Facility Start: 05-25-2024 End: 05-25-2024 ambulatory [facility] Work Phone: Start: 05-25-2024 End: 05-25-2024 Patient encounter procedure [facility] Work Phone: Start: 08-20-2023 End: 08-20-2023 ambulatory Roma Perez Other [facility] Other Start: 08-20-2023 Telephone encounter Roma Perez [facility] Start: 08-05-2023 End: 08-05-2023 ambulatory Roma Perez Other [facility] Other Start: 08-05-2023 Telephone encounter Roma Perez [facility] Start: 07-11-2023 End: 07-11-2023 ambulatory Roma Perez Other [facility] Other Start: 07-11-2023 [facility]itional care [facility] 14 day discharge Roma Perez [facility] Start: 07-05-2023 End: 07-05-2023 ambulatory Roma Perez Other [facility] Other Start: 07-05-2023 Telephone encounter Roma Perez [facility] Start: 05-30-2023 End: 05-30-2023 ambulatory Roma Perez Other [facility] Other Start: 05-30-2023 Telephone encounter Roma Perez [facility] Start: 11-30-2022 End: 03-05-2023 ambulatory ROMA ANETA [place] [place] Start: 11-14-2022 End: 11-14-2022 ambulatory Roma Perez Other [facility] Other Start: 11-14-2022 Telephone encounter Roma Perez [facility] Start: 11-02-2022 End: 11-02-2022 ambulatory Roma Perez Other [facility] Other Start: 11-02-2022 Office outpatient vi sit 25 minutes Roma Perez [facility] Start: 11-10-2021 End: 11-11-[address] TATYANA CHRISTENSEN Facility: Start: 11-09-2021 End: 11-10-2021 ambulatory EMERY BLANDON Facility:[facility] Procedures Date Procedure Procedure Detail Performing Clinician Screening for malign ant neoplasm of breast Roma Perez Other Screening for malign ant neoplasm of colon Roma Perez Other Plan of Treatment Date Care Activity Detail Author Comprehensive metabo lic 1999 panel - Serum or Plasma [facility] enter Microalbumin [Mass/volume] in Urine [facility] Immunizations Immunization Date Immunization Notes Care Provider Fa cility 09-01-2020 COVID-19 Vaccine Pfi zer - Documentation Purposes Only Roma Aneta Other [facility] 08-11-2020 COVID-19 Vaccine Pfi zer - Documentation Purposes Only Roma Perez Other [facility] Payers Date Payer Category Payer Private Health Insurance [id number] 1959 Medicaid [id number] 1959 Unknown [id number] 1955 Unknown [id number] 1955 Unknown [id number] 1955 Unknown [id number] Medicare [id number] 2.1 [id number] Social History Date Type Detail Facility Unknown if ever smoked [facility] Other Sex Assigned At Sex Assigned At Bir th [facility] Other Start: 1955 Sex Assigned At Female F [facility] Evaluation note 08-20-2023 Note Date & Type Note Facility 08-20-2023 Evaluation note Encounter Date Diagnosis Assessment Notes Jul, Anxiety, generalized (ICD-10 - F41.1) [facility] Other Evaluation note 08-05-2023 Note Date & Type Note Facility 08-05-2023 Evaluation note Encounter Date Diagnosis Assessment Notes Jul, Anxiety, generalized (ICD-10 - F41.1) [facility] Other Evaluation note 07-11-2023 Note Date & Type Note Facility 07-11-2023 Evaluation note Encounter Date Diagnosis Assessment Notes Jun, Anxiety, generalized (ICD-10 - F41.1) Pt admits anxiety and discussed the link between that and her COPD. Agrees to start med. Jun, COPD with exacerbation (ICD-10 - J44.1) Pt agrees to referral to Dr. Byers for consultation [facility] Other Evaluation note 11-02-2022 Note Date & [...] the scooter to help in this problem. [facility] Other Evaluation note 11-02-2022 Note Date & [...] Pt needs power wheelchair in home 11/16/22 [facility] Other Evaluation note Note Date & Type Note Facility Evaluation note No Information [employer] Other Evaluation note Note Date & Type Note Facility Evaluation note Diagnosis Onset Date Essential hypertension acute Hyperglycemia due to type 2 diabetes mellitus acute Hyperlipemia acute Hypothyroidism (acquired) [facility] Work Phone: History general Narrative - Reported Note Date & Type Note Facility History general Narrative - Reported Type Medical History CAD in [place] artery Medical History Pain in right shoulder Medical History Hyperglycemia due to type 2 diabetes mellitus Medical History Hypothyroidism (acquired) Medical History Essential hypertension Medical History COPD with exacerbation Medical History Hyperlipemia Medical History COPD (chronic obstru ctive pulmonary disease) Surgical History Surgical History CATARACT SURGERY 12/2020 Surgical History CHOLECYSTECTOMY Hospitalization History SEE SURGICAL HX [facility] Other History general Narrative - Reported Note Date & Type Note Facility History general Narrative - Reported Type Medical History CAD in [place] artery Medical History Pain in right shoulder Medical History Hyperglycemia due to type 2 diabetes mellitus Medical History Hypothyroidism (acquired) Medical History Essential hypertension Medical History COPD with exacerbation Medical History Hyperlipemia Medical History COPD (chronic obstru ctive pulmonary disease) Surgical History Surgical History CATARACT SURGERY 12/2020 Surgical History CHOLECYSTECTOMY Hospitalization History SEE SURGICAL HX Hospitalization History [facility] 06/2023 [facility] Other Summary Purpose Family History Relationship Condition Age at Onset Recorded Date/T melvi father Unknown mother Malignant neoplasm Unknown Unknown History of ovarian cancer Unknown Advance Directives Advance Directive Response Recorded Date/ Time Advance Directives No May 20, 2024 10:00am Reason for Referral Reason COPD, PFT pending Diagnosis 1 COPD with exacerbati on (J44.1) Referral Organization [facility] Referring Provider First Name Roma Referring Provider Last Name Aneta Referring Provider Specialty [facility] Referred Organization [facility] Referred Provider Abram Byers Referred Address [address] [place], [place],[address] Referred Provider Specialty Pulmonary Yaz friedman Referral Priority Routine Chief Complaint and Reason for Visit Chief Complaint [phone] update on ongoing issues Reason for Visit Essential hypertensi on Hyperglycemia due to type 2 diabetes mellitus Hyperlipemia Hypothyroidism (acquired) Additional Source Comments INFORMATION SOURCE (unrecogn ized section and content) DATE CREATED AUTHOR 12/28/2021 [facility] DATE CREATED AUTHOR AUTHOR'S ORGANIZ ATION 03/05/2023 [facility] REASON FOR VISIT (unrecogniz ed section and content) F2F FOR [id number] FOR WHEELCHAIRrefillTCMtbhrefillReferralRefill Care Teams (unrecognized sec tion and content) Team Status: Active Member Role Status Dates Roma Perez MD Primary Care Provider Active Team Status: Inactive Member Role Status Dates Roma Perez MD Primary Care Provide r, Attending Provider Active Start: May 25, 2024 End: May 25, 2024 Goals (unrecognized section and content) Goals may be documented in a n alternate section FOR RECORDS PERTAINING TO PATIENTS WHO ARE [...] BE BASED ON THE PRIMARY CLINICAL RECORDS. [facility] [employer] provides no warranty or guarantee of the accuracy or completeness of information in this document.
[2024-06-13 10:27] LABS: Basophils Absolute Auto 0.1 10^3/uL (0.0-0.1); Basophils Percent Auto 0.5 % (0.2-2.0); Eosinophils Absolute Auto 0.4 10^3/uL (0.0-0.7); Eosinophils Percent Auto 3.8 % (0.9-7.0); Hemoglobin 13.9 g/dL (12.0-16.0); Immature Granulocytes Abs Auto 0.02 10^3/uL (0.00-0.03); Immature Granulocytes Pct Auto 0.2 % (0.0-0.5); Lymphocytes Absolute Auto 2.2 10^3/uL (1.2-3.8); Mean Corpuscular HGB Conc 30.9 g/dL (29.9-35.2); Mean Corpuscular Hemoglobin 28.5 pg (26.7-34.0); Mean Corpuscular Volume 92.2 fL (81.0-99.0); Mean Platelet Volume 11.1 fL (9.5-13.5); Monocytes Absolute Auto 0.8 10^3/uL (0.3-0.8); Monocytes Percent Auto 8.1 % (1.7-12.0); Neutrophils Absolute Auto 5.9 10^3/uL (1.4-6.5); Neutrophils Percent Auto 63.4 % (43.0-75.0); Platelet Count 305 10^3/uL (150-450); Red Blood Count 4.88 10^6/uL (4.20-5.40); Red Cell Distribution Width 13.2 % (11.0-15.0); White Blood Count 9.2 10^3/uL (4.0-11.0)
[2024-06-13 10:48] LABS: Estimated Average Glucose 126 mg/dL
[2024-06-13 10:56] LABS: Microalbumin Urine Random 1.9 mg/dL (<=30.0)
[2024-06-13 11:05] LABS: Free T4 1.36 ng/dL (0.76-1.46)
[2024-06-13 11:09] LABS: Alanine Aminotransferase 15 U/L (14-59); Albumin Globulin Ratio 0.8; Albumin Level 3.6 g/dL (3.4-5.0); Alkaline Phosphatase 66 U/L (46-116); Anion Gap 18.9; Aspartate Amino Transferase 16 U/L (15-37); BUN Creatinine Ratio 14.8; Bilirubin Total 0.4 mg/dL (0.2-1.0); Calcium 9.6 mg/dL (8.5-10.1); Carbon Dioxide 24.1 mmol/L (21.0-32.0); Chloride 105 mmol/L (98-107); Chol HDL Ratio 2.4; Cholesterol 213 mg/dL (<=200); Estimated GFR (African America >60 (>=60 mL/min/1.73m^2); Estimated GFR (Non-African Ame >60 (>=60 mL/min/1.73m^2); Globulin 4.5 g/dL; Glucose 112 mg/dL (74-106); HDL Cholesterol 90 mg/dL (40-60); Sodium 144 mmol/L (136-145); Thyroid Stimulating Hormone 1.501 uIU/mL (0.358-3.740); Total Protein 8.1 g/dL (6.4-8.2); Triglycerides 155 mg/dL (<=150)
== END 2024-06-13 09:55 | disposition home or self-care (01) ==
PROVIDERS: PCP Family Medicine; Visit Provider Family Medicine
DX: E78.5 Hyperlipidemia, unspecified (principal); E11.65 Type 2 diabetes mellitus with hyperglycemia; I10 Essential (primary) hypertension; E03.9 Hypothyroidism, unspecified
CPT/HCPCS: 36415; 80053; 80061; 82043; 83036; 84439; 84443; 85025